=== PATIENT | male | born 1995 | race Caucasian/White ===

== ENCOUNTER 2019-10-20 13:10 | Emergency (ER) | payer OTHER ==
[~2019-10-20] VITALS: Ht 172.7 cm; Wt 72.7 kg
[2019-10-20 14:04] LABS: HEMATOCRIT 49.6 % (42.0-52.0); HEMOGLOBIN 17.8 g/dl (13.5-17.5); MEAN CORPUSCULAR HEMOGLOBIN 31.1 pg (27.0-33.0); MEAN CORPUSCULAR HGB CONC 35.9 g/dl (32.0-36.5); MEAN CORPUSCULAR VOLUME 86.6 fl (80.0-96.0); PLATELET COUNT, AUTOMATED 229 10^3/uL (150-450); RED BLOOD COUNT 5.73 10^6/uL (4.30-6.10); WHITE BLOOD COUNT 7.8 10^3/uL (4.0-10.0)
[2019-10-20 14:21] LABS: AMPHETAMINES LEVEL URINE NEGATIVE (NEGATIVE); BARBITURATES URINE NEGATIVE (NEGATIVE); BENZODIAZEPINES URINE NEGATIVE (NEGATIVE); CANNABINOIDS URINE NEGATIVE (NEGATIVE); COCAINE METABOLITE URINE NEGATIVE (NEGATIVE); METHADONE URINE NEGATIVE (NEGATIVE); OPIATES URINE NEGATIVE (NEGATIVE); PHENCYCLIDINE URINE NEGATIVE (NEGATIVE)
[2019-10-20 14:48] LABS: ACETAMINOPHEN LEVEL < 2.0 UG/ML (10.0-30.0); ALBUMIN 4.2 GM/DL (3.2-5.2); ALT/SGPT 25 U/L (12-78); BILIRUBIN,DIRECT 0.3 MG/DL (0.0-0.2); BILIRUBIN,TOTAL 1.3 MG/DL (0.2-1.0); BLOOD UREA NITROGEN 11 MG/DL (7-18); CARBON DIOXIDE LEVEL 27 MEQ/L (21-32); CHLORIDE LEVEL 106 MEQ/L (98-107); CREATININE FOR GFR 0.85 MG/DL (0.70-1.30); ETHYL ALCOHOL (ETHANOL) < 0.003 % (0.000-0.010); GLOMERULAR FILTRATION RATE > 60.0 (>60); GLUCOSE, FASTING 85 MG/DL (70-100); POTASSIUM SERUM 4.3 MEQ/L (3.5-5.1); SALICYLATE LEVEL < 1.7 MG/DL (5.0-30.0); SODIUM LEVEL 139 MEQ/L (136-145); THYROID STIMULATING HORMONE 0.589 uIU/ML (0.358-3.740); TOTAL PROTEIN 7.6 GM/DL (6.4-8.2)
--- NOTE | 2019-10-20 21:06 | ECGEPIP ---
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
[2019-10-21 06:36] VITALS: BP 122/73
== END 2019-10-21 06:39 ==
LOC: M ED 13:10
DX: R45.851 Suicidal ideations (principal); F32.9 Major depressive disorder, single episode, unspecified; F41.9 Anxiety disorder, unspecified
CPT/HCPCS: 36415; 80048; 80076; 80307; 84443; 85027; 87486; 87581; 87633; 87798; 93005; 99284; G0480

== ENCOUNTER 2020-01-28 11:02 | Inpatient (IN) | payer OTHER ==
[~2020-01-28] VITALS: Ht 172.7 cm; Wt 78.5 kg
[2020-01-28] MEDS ORDERED: RISP0.5T21 PO (11:34)
[2020-01-28] MEDS ORDERED: RISP2TAB32 PO (11:34)
[2020-01-28] MEDS ORDERED: ZOLO100T PO (11:34)
[2020-01-28] MEDS ORDERED: LITH300C PO (11:34)
[2020-01-28 12:22] LABS: HEMATOCRIT 47.3 % (42.0-52.0); HEMOGLOBIN 16.3 g/dl (13.5-17.5); MEAN CORPUSCULAR HEMOGLOBIN 29.6 pg (27.0-33.0); MEAN CORPUSCULAR HGB CONC 34.5 g/dl (32.0-36.5); MEAN CORPUSCULAR VOLUME 85.8 fl (80.0-96.0); PLATELET COUNT, AUTOMATED 203 10^3/uL (150-450); RED BLOOD COUNT 5.51 10^6/uL (4.30-6.10); WHITE BLOOD COUNT 5.3 10^3/uL (4.0-10.0)
[2020-01-28 12:35] LABS: AMPHETAMINES LEVEL URINE NEGATIVE (NEGATIVE); BARBITURATES URINE NEGATIVE (NEGATIVE); BENZODIAZEPINES URINE NEGATIVE (NEGATIVE); CANNABINOIDS URINE NEGATIVE (NEGATIVE); COCAINE METABOLITE URINE NEGATIVE (NEGATIVE); METHADONE URINE NEGATIVE (NEGATIVE); OPIATES URINE NEGATIVE (NEGATIVE); PHENCYCLIDINE URINE NEGATIVE (NEGATIVE)
[2020-01-28 12:51] LABS: ALBUMIN 4.4 GM/DL (3.2-5.2); ALT/SGPT 26 U/L (12-78); BILIRUBIN,DIRECT 0.2 MG/DL (0.0-0.2); BLOOD UREA NITROGEN 16 MG/DL (7-18); CALCIUM LEVEL 9.1 MG/DL (8.5-10.1); CARBON DIOXIDE LEVEL 28 MEQ/L (21-32); CHLORIDE LEVEL 106 MEQ/L (98-107); CREATININE FOR GFR 1.01 MG/DL (0.70-1.30); ETHYL ALCOHOL (ETHANOL) < 0.003 % (0.000-0.010); GLOMERULAR FILTRATION RATE > 60.0 (>60); GLUCOSE, FASTING 87 MG/DL (70-100); SALICYLATE LEVEL < 1.7 MG/DL (5.0-30.0); SODIUM LEVEL 138 MEQ/L (136-145); TOTAL PROTEIN 7.6 GM/DL (6.4-8.2)
[2020-01-28 12:52] LABS: ACETAMINOPHEN LEVEL < 2.0 UG/ML (10.0-30.0)
[2020-01-28 14:09] LABS: LITHIUM LEVEL 0.28 MEQ/L (0.60-1.20)
[2020-01-28] MEDS ORDERED: LITH1TAB PO (14:45)
[2020-01-28] MEDS ORDERED: ACETAMINOPHEN TAB 650MG DOSE (2X325MG) PO PRN (15:00)
[2020-01-28] MEDS ORDERED: MOM 30ML SUSPENSION UDC PO PRN (15:00)
[2020-01-28] MEDS ORDERED: MAALOX 30 ML SUSP *UDC PO PRN (15:00)
[2020-01-28 16:27] VITALS: BP 141/78
[2020-01-28] MEDS: risperiDONE 2 MG TAB PO SCH (20:19)
[2020-01-29 06:22] VITALS: BP 125/66
[2020-01-29] MEDS: SERTRALINE HCL 50 MG TAB PO SCH (08:20)
[2020-01-29] MEDS: risperiDONE 0.5 MG TAB PO SCH (08:20)
[2020-01-29] MEDS ORDERED: LITHIUM CARBONATE 300 MG **CR** TAB PO SCH (09:00)
--- NOTE | 2020-01-29 10:43 | MHHPEPDOC ---
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 His family was born and raised in [place], intact household, went to school, and describes himself as Congregation, but not practicing. He completed high school and stable financially. He has a girlfriend, but she lives far away and visits her on the weekends. MEDICATIONS: Hes on a combination of Zoloft, Risperidone, and [place] at this time. In the past, he notes that this has been helpful and no legal problems at this time. MEDICAL HISTORY: He has a history of suicide thinking and depression, treated at [facility]. He reports an increasing difficulty with depression, low mood, fatigue, and loss of interest. He previously been admitted several months ago, where he was at [facility]. No overt history of suicide attempt, but have reported suicide attempt with alcohol and opioids. He had some history of ADHD as a kid and IEP in high school, which is did well on. FAMILY HISTORY: He denies any family history of psychiatric problems other than reported brother on Zoloft and some depression, but no known suicides. 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 SOCIAL HISTORY - SUBSTANCE USE: He declines any excessive alcohol, tobacco, caffeine, or illicit drugs used. Objective Appearance: Fair hygiene. Affect: Dysthymic and Constricted. Speech: He denies any auditory and visual hallucinations. Spontaneous and Fluid. Cognition: Grossly intact. Thought Form: Linear and goal directed. Thought Content: No evidence of aggressive or homicidal ideation. No thoughts of self harm. Intermittend suicidal ideation. No evidence of delusions. Perception: No perceptual abnormalities noted. Judgement: Fair to poor. Insight: Fair to poor. Assessment F60.3 Borderline personality disorder F43.20 Adjustment disorder, unspecified F33.8 Other recurrent depressive disorders Plan Continue taking 150 mg Zoloft daily, Risperidone 0.5 mg QAM and 2 mg QHS, and [place] extended release 300 mg. Observe him as there have been concerns about adjustment disorders with vic fowler. Further observation will likely indicate the underlying cause as the adjustment would be expected to improve. Theres also been concerns raised in the treatment team as this could be potentially an attempt to gain a higher service rating once he leaves. In 2-3 days, we will confer with outpatient Behavior Health to determine if they wish to have him go to long-term treatment or whether theyre referring to return to [facility] as now patient is in their records as they mentioned. Robert otherwise has no concerning behavior and will be converted to voluntary today as he is amenable. Its not clear whatever he would be involuntary, however it appears that the treatment would be best served by a voluntary conversion. Vital Signs Vital Signs Date Time Temp Pulse Resp B/P (MAP) Pulse Ox O2 Delivery O2 Flow Rate FiO2 01/29/20 07:43 Room Air 01/29/20 06:22 96.9 66 18 125/66 (85) 01/28/20 16:07 97 Laboratory Data 24H Labs Laboratory Tests 2 01/28/20 11:46: Nucleated Red Blood Cells % (auto) 0.0, Anion Gap 4L, Glomerular Filtration Rate > 60.0, Calcium Level 9.1, Total Bilirubin 1.0, Direct Bilirubin 0.2, Aspartate Amino Transf (AST/SGOT) 19, Alanine Aminotransferase (ALT/SGPT) 26, Alkaline Phosphatase 60, Total Protein 7.6, Albumin 4.4, Albumin/Globulin Ratio 1.4, Thyroid Stimulating Hormone (TSH) 1.780, Salicylates Level < 1.7L, Urine Opiates Screen NEGATIVE, Urine Methadone Screen NEGATIVE, Acetaminophen Level < 2.0L, Urine Barbiturates Screen NEGATIVE, Urine Phencyclidine Screen NEGATIVE, Urine Amphetamines Screen NEGATIVE, Urine Benzodiazepines Screen NEGATIVE, [place] Level 0.28L, Urine Cocaine Metabolite Screen NEGATIVE, Urine Cannabinoids Screen NEGATIVE, Ethyl Alcohol Level < 0.003 CBC/BMP Laboratory Tests 01/28/20 11:46 Medications Scheduled [place] Carbonate ([place] Carbonate ER) 300 Mg Tablet.er, 300 MG PO DAILY, (Reported) Risperidone (Risperdal) 0.5 Mg Tablet, 0.5 MG PO DAILY, (Reported) Risperidone (Risperdal) 2 Mg Tablet, 2 MG PO QHS, (Reported) Sertraline Hcl (Zoloft) 100 Mg Tablet, 150 MG PO DAILY, (Reported) Allergies Coded Allergies: No Known Allergies (Unverified , 10/20/19) ALAN SHER DO Jan 29, 2020 10:43
--- NOTE | 2020-01-29 14:00 | HPEPDOC ---
[facility] Medical History & Physical Date of Admission Jan 28, 2020 Date of Service: Jan 29, 2020 Attending Physician: ALAN SHER DO History and Physical Hospitalist Consultation: CHIEF COMPLAINT: suicidal ideations HISTORY OF PRESENT ILLNESS: 24 y/o M with PMHx depression/suicidal ideations presents with recurrence of symptoms. Denies CP/SOB/palpitations. No N/V/ABd pain. PAST MEDICAL HISTORY: None PAST SURGICAL HISTORY: None SOCIAL HISTORY: Denies tobacco, alcohol use. FAMILY HISTORY: Non contributory ALLERGIES: Please see below. REVIEW OF SYSTEMS: HEENT: Denies sore throat/headache CARDIOVASCULAR: Denies chest pain/palpitations RESPIRATORY: Denies shortness of breath/cough GASTROINTESTINAL: denies nausea/vomiting GENITOURINARY: Denies dysuria/urinary urgency. MUSCULOSKELETAL: Denies myalgias/arthralgias NEUROLOGICAL: Denies any focal weakness HOME MEDICATIONS: Please see below. PHYSICAL EXAMINATION: Vitals: (see below) General: No acute distress, laying comfortably in bed. HEENT: Moist mucous membranes. Neck: No JVD or lymphadenopathy Cardiac: RRR, No murmurs Pulm: Clear to auscultation b/l. No wheezing, rhonchi Abd: NT/ND + BS Ext: No edema or cyanosis LABORATORY DATA: See below. ASSESSMENT/PLAN: 1. Depression/Suicidal Ideations: Management per psychiatry. DVT Prophy: OOB/Ambulate Thank you for the consultation. Please call with questions. Vital Signs Vital Signs Date Time Temp Pulse Resp B/P (MAP) Pulse Ox O2 Delivery O2 Flow Rate FiO2 01/29/20 07:43 Room Air 01/29/20 06:22 96.9 66 18 125/66 (85) 01/28/20 16:07 97 Home Medications Scheduled [place] Carbonate ([place] Carbonate ER) 300 Mg Tablet.er, 300 MG PO DAILY Risperidone (Risperdal) 0.5 Mg Tablet, 0.5 MG PO DAILY Risperidone (Risperdal) 2 Mg Tablet, 2 MG PO QHS Sertraline Hcl (Zoloft) 100 Mg Tablet, 150 MG PO DAILY Allergies Coded Allergies: No Known Allergies (Unverified , 10/20/19) A-FIB/CHADSVASC A-FIB History Current/History of A-Fib/PAF?: No OMAR NEWBERRY MD Jan 29, 2020 14:00
[2020-01-29 18:46] VITALS: BP 139/76
[2020-01-29] MEDS: risperiDONE 2 MG TAB PO SCH (20:31)
[2020-01-29] MEDS: LITHIUM CARBONATE 300 MG **CR** TAB PO SCH (20:32)
[2020-01-29] MEDS: traZODone 50 MG TAB PO PRN (20:32)
[2020-01-29] MEDS ORDERED: diphenhydrAMINE 25MG CAP PO ONE (21:45)
[2020-01-29] MEDS ORDERED: OLANZapine ORAL DISINTEGRATING TAB 5MG PO ONE (21:45)
[2020-01-30 06:54] VITALS: BP 106/53
[2020-01-30] MEDS ORDERED: PREVNAR 13 VACCINE SYRINGE IM ONE (09:00)
[2020-01-30] MEDS: LITHIUM CARBONATE 300 MG **CR** TAB PO SCH ×2 (09:17→20:23)
[2020-01-30] MEDS: SERTRALINE HCL 50 MG TAB PO SCH (09:17)
[2020-01-30] MEDS: risperiDONE 0.5 MG TAB PO SCH (09:17)
--- NOTE | 2020-01-30 10:54 | MHIPNPDOC ---
[facility] Progress Note Progress Note DATE OF SERVICE: 01/30/20 Subjective HPI: Robert presents today for concerns regarding his depression. He states that he has been feeling anxious due to his relationship with his girlfriend. He recently increased his dosage of lithium. He notes he has experienced dry mouth and grogginess after sleeping. He denies headaches or difficulty sleeping. He states that after speaking with his girlfriend he has been having suicidal thoughts. He states he does not have any plans to act. Objective Appearance: Appears to be stated age. Well groomed. Well nourished. Behavior: Poor eye contact. Mood: Dysphoric. Passive SI. Cognition: Mildy impaired, groggy and sedated. Thought Content: No homicidal or suicidal ideation. Assessment F33.9 Major depressive disorder, recurrent, unspecified F60.3 Borderline personality disorder Plan Continue lithium and Risperidone at this time. Patients current treatment team is advocating for IOP first. We will see about shelter as patient would likely have more difficulty tolerating this. Vital Signs Vital Signs Date Time Temp Pulse Resp B/P (MAP) Pulse Ox O2 Delivery O2 Flow Rate FiO2 01/30/20 06:54 97.8 60 15 106/53 (70) 97 Room Air Current Medications Current Medications Medications (Trade) Dose Ordered Sig/Kane Route PRN Reason Start Time Stop Time Status Last Admin Dose Admin Acetaminophen (Tylenol Tab) 650 mg Q6HP PRN PO HEADACHE or DISCOMFORT 01/28/20 15:00 Al Hydrox/Mg Hydrox/Simethicone (Mylanta) 30 ml Q4HP PRN PO HEARTBURN/INDIGESTION 01/28/20 15:00 Home Med (Med Rec Complete!) ASDIRECTED XX 01/28/20 15:00 01/28/20 14:49 DC [place] Carbonate (Lithobid Cr) 300 mg BID PO 01/29/20 21:00 01/30/20 09:17 [place] Carbonate (Lithobid Cr) 300 mg DAILY PO 01/29/20 09:00 01/29/20 13:17 DC 01/29/20 08:20 Magnesium Hydroxide (Milk Of Magnesia) 30 ml DAILYPRN PRN PO CONSTIPATION 01/28/20 15:00 Risperidone (RisperDAL) 0.5 mg DAILY PO 01/29/20 09:00 01/30/20 09:17 Risperidone (RisperDAL) 2 mg QHS PO 01/28/20 21:00 01/29/20 20:31 Sertraline HCl (Zoloft) 150 mg DAILY PO 01/29/20 09:00 01/30/20 09:17 Trazodone HCl (Desyrel) 50 mg QHSP PRN PO INSOMNIA 01/28/20 15:00 01/29/20 20:32 Allergies Coded Allergies: No Known Allergies (Unverified , 10/20/19) ALAN SHER DO Jan 30, 2020 10:54
[2020-01-30 16:08] VITALS: BP 115/60
[2020-01-30] MEDS: risperiDONE 2 MG TAB PO SCH (20:23)
[2020-01-30] MEDS: traZODone 50 MG TAB PO PRN (20:23)
[2020-01-30] MEDS: diphenhydrAMINE 25MG CAP PO PRN (20:59)
[2020-01-30] MEDS ORDERED: OLANZapine ORAL DISINTEGRATING TAB 5MG PO ONE (21:15)
[2020-01-31 06:16] VITALS: BP 109/71
[2020-01-31] MEDS: LITHIUM CARBONATE 300 MG **CR** TAB PO SCH ×2 (09:25→21:14)
[2020-01-31] MEDS: risperiDONE 0.5 MG TAB PO SCH (09:25)
[2020-01-31] MEDS: SERTRALINE HCL 50 MG TAB PO SCH (09:26)
[2020-01-31] MEDS: diphenhydrAMINE 25MG CAP PO PRN (12:07)
[2020-01-31 16:12] VITALS: BP 120/68
[2020-01-31] MEDS: traZODone 50 MG TAB PO PRN (21:14)
[2020-01-31] MEDS: risperiDONE 2 MG TAB PO SCH (21:14)
[2020-02-01 06:21] VITALS: BP 109/60
[2020-02-01] MEDS: risperiDONE 0.5 MG TAB PO SCH (09:07)
[2020-02-01] MEDS: LITHIUM CARBONATE 300 MG **CR** TAB PO SCH ×2 (09:07→20:21)
[2020-02-01] MEDS: SERTRALINE 100 MG TAB PO SCH (09:07)
--- NOTE | 2020-02-01 10:24 | MHIPNPDOC ---
[facility] Progress Note Progress Note DATE OF SERVICE: 02/01/20 Subjective HPI: Robert presents today reporting that he's feeling better sometimes and is more interactive and seeking out interactions, otherwise he feels fairly bad. MEDICATIONS: Patient has been tolerating the medication with only a headache and a mild stomachache. Objective Appearance: Hygiene - Fair. Thought Form: Linear and goal directed. Thought Content: Intermittent evidence of suicidal ideation. Perception: No auditory and visual hallucinations. Judgement: Poor. Insight: Fair. Assessment F33.8 Other recurrent depressive disorders F60.3 Borderline personality disorder Plan Continue [place] Risperidone Vital Signs Vital Signs Date Time Temp Pulse Resp B/P (MAP) Pulse Ox O2 Delivery O2 Flow Rate FiO2 02/01/20 06:21 97.0 65 12 109/60 (76) Room Air 01/30/20 06:54 97 Current Medications Current Medications Medications (Trade) Dose Ordered Sig/Kane Route PRN Reason Start Time Stop Time Status Last Admin Dose Admin Acetaminophen (Tylenol Tab) 650 mg Q6HP PRN PO HEADACHE or DISCOMFORT 01/28/20 15:00 Al Hydrox/Mg Hydrox/Simethicone (Mylanta) 30 ml Q4HP PRN PO HEARTBURN/INDIGESTION 01/28/20 15:00 Diphenhydramine HCl (Benadryl) 25 mg Q4HP PRN PO Anxiety 01/30/20 20:30 01/31/20 12:07 Home Med (Med Rec Complete!) ASDIRECTED XX 01/28/20 15:00 01/28/20 14:49 DC [place] Carbonate (Lithobid Cr) 300 mg BID PO 01/29/20 21:00 02/01/20 09:07 [place] Carbonate (Lithobid Cr) 300 mg DAILY PO 01/29/20 09:00 01/29/20 13:17 DC 01/29/20 08:20 Magnesium Hydroxide (Milk Of Magnesia) 30 ml DAILYPRN PRN PO CONSTIPATION 01/28/20 15:00 Risperidone (RisperDAL) 0.5 mg DAILY PO 01/29/20 09:00 02/01/20 09:07 Risperidone (RisperDAL) 2 mg QHS PO 01/28/20 21:00 01/31/20 21:14 Sertraline HCl (Zoloft) 150 mg DAILY PO 01/29/20 09:00 01/31/20 14:50 DC 01/31/20 09:26 Sertraline HCl (Zoloft) 200 mg DAILY PO 02/01/20 09:00 02/01/20 09:07 Trazodone HCl (Desyrel) 50 mg QHSP PRN PO INSOMNIA 01/28/20 15:00 01/31/20 21:14 Allergies Coded Allergies: No Known Allergies (Unverified , 10/20/19) ALAN SHER DO Feb 01, 2020 10:24
--- NOTE | 2020-02-01 10:24 | MHIPNPDOC ---
[facility] Progress Note Progress Note DATE OF SERVICE: 01/31/20 Subjective HPI: Robert presents today for concerns regarding his symptoms of depression. Patients symptoms of depression have not improved since last visitation. Patient has suicidal ideations and has feelings of worthlessness and self harm. Patients girlfriend feels that his mental health is an inconvenience to her and does not offer him support. Objective Behavior: Once leaves the office becomes much more engaged and talkative when he is talking to students and does not feel observed. Affect: Poor insight and judgement. Dysthymic. Constricted. Incongruent with stated mood. Speech: Linear fluid speech. Assessment F33.9 Major depressive disorder, recurrent, unspecified F60.3 Borderline personality disorder Plan Continue to follow involuntary. Will see about representing to [facility]. Increase Zoloft to 200 mg daily. Continue lithium medication. Continue Risperidone medication. Vital Signs Vital Signs Date Time Temp Pulse Resp B/P (MAP) Pulse Ox O2 Delivery O2 Flow Rate FiO2 02/01/20 06:21 97.0 65 12 109/60 (76) Room Air 01/30/20 06:54 97 Current Medications Current Medications Medications (Trade) Dose Ordered Sig/Kane Route PRN Reason Start Time Stop Time Status Last Admin Dose Admin Acetaminophen (Tylenol Tab) 650 mg Q6HP PRN PO HEADACHE or DISCOMFORT 01/28/20 15:00 Al Hydrox/Mg Hydrox/Simethicone (Mylanta) 30 ml Q4HP PRN PO HEARTBURN/INDIGESTION 01/28/20 15:00 Diphenhydramine HCl (Benadryl) 25 mg Q4HP PRN PO Anxiety 01/30/20 20:30 01/31/20 12:07 Home Med (Med Rec Complete!) ASDIRECTED XX 01/28/20 15:00 01/28/20 14:49 DC [place] Carbonate (Lithobid Cr) 300 mg BID PO 01/29/20 21:00 02/01/20 09:07 [place] Carbonate (Lithobid Cr) 300 mg DAILY PO 01/29/20 09:00 01/29/20 13:17 DC 01/29/20 08:20 Magnesium Hydroxide (Milk Of Magnesia) 30 ml DAILYPRN PRN PO CONSTIPATION 01/28/20 15:00 Risperidone (RisperDAL) 0.5 mg DAILY PO 01/29/20 09:00 02/01/20 09:07 Risperidone (RisperDAL) 2 mg QHS PO 01/28/20 21:00 01/31/20 21:14 Sertraline HCl (Zoloft) 150 mg DAILY PO 01/29/20 09:00 01/31/20 14:50 DC 01/31/20 09:26 Sertraline HCl (Zoloft) 200 mg DAILY PO 02/01/20 09:00 02/01/20 09:07 Trazodone HCl (Desyrel) 50 mg QHSP PRN PO INSOMNIA 01/28/20 15:00 01/31/20 21:14 Allergies Coded Allergies: No Known Allergies (Unverified , 10/20/19) ALAN SHER DO Feb 01, 2020 10:24
[2020-02-01 16:12] VITALS: BP 136/82
[2020-02-01] MEDS: risperiDONE 2 MG TAB PO SCH (20:21)
[2020-02-01] MEDS: traZODone 50 MG TAB PO PRN (20:21)
[2020-02-02 06:26] VITALS: BP 112/70
[2020-02-02] MEDS: LITHIUM CARBONATE 300 MG **CR** TAB PO SCH ×2 (08:51→21:14)
[2020-02-02] MEDS: diphenhydrAMINE 25MG CAP PO PRN (08:51)
[2020-02-02] MEDS: SERTRALINE 100 MG TAB PO SCH (08:53)
[2020-02-02] MEDS: risperiDONE 0.5 MG TAB PO SCH (08:53)
[2020-02-02] MEDS ORDERED: BACITRACIN OINTMENT 30GM TUBE TOP PRN (09:45)
--- NOTE | 2020-02-02 11:18 | MHIPNPDOC ---
[facility] Progress Note Progress Note DATE OF SERVICE: 02/02/20 Subjective HPI: Robert presents today for a follow up. He claims to be feeling better with his depression, but still feels mildly uneasy. He denies faking his emotions or putting on a mask to hide it. He does report feeling a little anxious, but overall states to be doing well. He tried outpatient care, but notes that it makes him feel more depressed. Objective Appearance: Well groomed. Well nourished. Appears to be stated age. Behavior: Engaged. Pleasant. Cooperative with good eye contact. Affect: Full range. Appropriate to context. Mood: Generally good. Appropriately reactive. Euthymic. Speech: Normal volume. Spontaneous and Fluid. Normal rate. Motor: No gross motor abnormalities. Cognition: Alert, Attentive, and Oriented to person, place, time. Memory: No formal testing. No gross abnormalities of short or half-way memory noted during interview. Thought Form: Linear and goal directed. Thought Content: No evidence of delusions. No thoughts of self harm. No evidence of aggressive or homicidal ideation. No evidence of suicidal ideation. Perception: No perceptual abnormalities noted. Judgement: Intact as evidenced by decision making in the recent past. Insight: Good insight into symptoms and treatment options. Assessment F33.8 Other recurrent depressive disorders F60.3 Borderline personality disorder Plan Continue [place], Risperidone, and Sertraline at current dose, which is making good progress. Patient will see if open to long-term. If not, well most likely discharge him by mid-week. Vital Signs Vital Signs Date Time Temp Pulse Resp B/P (MAP) Pulse Ox O2 Delivery O2 Flow Rate FiO2 02/02/20 06:26 99.1 71 15 112/70 (84) 98 Room Air Current Medications Current Medications Medications (Trade) Dose Ordered Sig/Kane Route PRN Reason Start Time Stop Time Status Last Admin Dose Admin Acetaminophen (Tylenol Tab) 650 mg Q6HP PRN PO HEADACHE or DISCOMFORT 01/28/20 15:00 Al Hydrox/Mg Hydrox/Simethicone (Mylanta) 30 ml Q4HP PRN PO HEARTBURN/INDIGESTION 01/28/20 15:00 02/02/20 10:53 Bacitracin (Bacitracin Oint) APPLY TOPICALLY DAILY... DAILYPRN PRN TOP SEE DOSE INSTRUCTIONS 02/02/20 09:45 Diphenhydramine HCl (Benadryl) 25 mg Q4HP PRN PO Anxiety 01/30/20 20:30 02/02/20 08:51 Home Med (Med Rec Complete!) ASDIRECTED XX 01/28/20 15:00 01/28/20 14:49 DC [place] Carbonate (Lithobid Cr) 300 mg BID PO 01/29/20 21:00 02/02/20 08:51 [place] Carbonate (Lithobid Cr) 300 mg DAILY PO 01/29/20 09:00 01/29/20 13:17 DC 01/29/20 08:20 Magnesium Hydroxide (Milk Of Magnesia) 30 ml DAILYPRN PRN PO CONSTIPATION 01/28/20 15:00 Risperidone (RisperDAL) 0.5 mg DAILY PO 01/29/20 09:00 02/02/20 08:53 Risperidone (RisperDAL) 2 mg QHS PO 01/28/20 21:00 02/01/20 20:21 Sertraline HCl (Zoloft) 150 mg DAILY PO 01/29/20 09:00 01/31/20 14:50 DC 01/31/20 09:26 Sertraline HCl (Zoloft) 200 mg DAILY PO 02/01/20 09:00 02/02/20 08:53 Trazodone HCl (Desyrel) 50 mg QHSP PRN PO INSOMNIA 01/28/20 15:00 02/01/20 20:21 Allergies Coded Allergies: No Known Allergies (Unverified , 10/20/19) ALAN SHER DO Feb 02, 2020 11:18
[2020-02-02 18:10] VITALS: BP 144/81
[2020-02-02] MEDS: risperiDONE 2 MG TAB PO SCH (21:14)
[2020-02-03 06:09] VITALS: BP 128/78
[2020-02-03] MEDS: risperiDONE 0.5 MG TAB PO SCH (08:33)
[2020-02-03] MEDS: SERTRALINE 100 MG TAB PO SCH (08:33)
[2020-02-03] MEDS: LITHIUM CARBONATE 300 MG **CR** TAB PO SCH ×2 (08:33→20:47)
--- NOTE | 2020-02-03 10:42 | MHIPNPDOC ---
[facility] Progress Note Progress Note DATE OF SERVICE: 02/03/20 Subjective HPI: Robert presents today for concerns regarding his evaluation and discharge. Patient affirms that suicidal thoughts are getting better, stomach problems, headaches. He denies self harm. Objective Appearance: Well groomed. Well nourished. Appears to be stated age. Behavior: Engaged. Pleasant. Cooperative with good eye contact. Affect: Appropriate to context. Full range. Mood: Euthymic. Generally good. Appropriately reactive. Speech: Normal rate. Normal volume. Spontaneous and Fluid. Motor: No gross motor abnormalities. Cognition: Alert, Attentive, and Oriented to person, place, time. Memory: No formal testing. No gross abnormalities of short or longterm memory noted during interview. Thought Form: Linear and goal directed. Thought Content: No evidence of suicidal ideation. No evidence of aggressive or homicidal ideation. No evidence of delusions. No thoughts of self harm. Perception: No perceptual abnormalities noted. Judgement: Intact as evidenced by decision making in the recent past. Insight: Good insight into symptoms and treatment options. Assessment F33.8 Other recurrent depressive disorders F60.3 Borderline personality disorder Plan Continue current medications. Discharge tomorrow at 11:00 AM. Patient has made progress regarding his depressive symptoms. Vital Signs Vital Signs Date Time Temp Pulse Resp B/P (MAP) Pulse Ox O2 Delivery O2 Flow Rate FiO2 02/03/20 08:59 Room Air 02/03/20 06:09 98.3 74 15 128/78 (95) 98 Current Medications Current Medications Medications (Trade) Dose Ordered Sig/Kane Route PRN Reason Start Time Stop Time Status Last Admin Dose Admin Acetaminophen (Tylenol Tab) 650 mg Q6HP PRN PO HEADACHE or DISCOMFORT 01/28/20 15:00 Al Hydrox/Mg Hydrox/Simethicone (Mylanta) 30 ml Q4HP PRN PO HEARTBURN/INDIGESTION 01/28/20 15:00 02/02/20 10:53 Bacitracin (Bacitracin Oint) APPLY TOPICALLY DAILY... DAILYPRN PRN TOP SEE DOSE INSTRUCTIONS 02/02/20 09:45 02/03/20 08:35 Diphenhydramine HCl (Benadryl) 25 mg Q4HP PRN PO Anxiety 01/30/20 20:30 02/02/20 08:51 Home Med (Med Rec Complete!) ASDIRECTED XX 01/28/20 15:00 01/28/20 14:49 DC [place] Carbonate (Lithobid Cr) 300 mg BID PO 01/29/20 21:00 02/03/20 08:33 [place] Carbonate (Lithobid Cr) 300 mg DAILY PO 01/29/20 09:00 01/29/20 13:17 DC 01/29/20 08:20 Magnesium Hydroxide (Milk Of Magnesia) 30 ml DAILYPRN PRN PO CONSTIPATION 01/28/20 15:00 Risperidone (RisperDAL) 0.5 mg DAILY PO 01/29/20 09:00 02/03/20 08:33 Risperidone (RisperDAL) 2 mg QHS PO 01/28/20 21:00 02/02/20 21:14 Sertraline HCl (Zoloft) 150 mg DAILY PO 01/29/20 09:00 01/31/20 14:50 DC 01/31/20 09:26 Sertraline HCl (Zoloft) 200 mg DAILY PO 02/01/20 09:00 02/03/20 08:33 Trazodone HCl (Desyrel) 50 mg QHSP PRN PO INSOMNIA 01/28/20 15:00 02/01/20 20:21 Allergies Coded Allergies: No Known Allergies (Unverified , 10/20/19) ALAN SHER DO Feb 03, 2020 10:42
[2020-02-03 18:03] VITALS: BP 132/85
[2020-02-03] MEDS: risperiDONE 2 MG TAB PO SCH (20:47)
[2020-02-04 06:52] VITALS: BP 138/89
[2020-02-04] MEDS: LITHIUM CARBONATE 300 MG **CR** TAB PO SCH (08:35)
[2020-02-04] MEDS: risperiDONE 0.5 MG TAB PO SCH (08:35)
[2020-02-04] MEDS: SERTRALINE 100 MG TAB PO SCH (08:35)
[2020-02-04] MEDS ORDERED: RISP2TAB32 PO (08:53)
[2020-02-04] MEDS ORDERED: SERT-138 PO (08:53)
[2020-02-04] MEDS ORDERED: RISP0.5T21 PO (08:53)
[2020-02-04] MEDS ORDERED: LITH1TAB PO (08:53)
--- NOTE | 2020-02-04 09:06 | MHDSPDOC ---
[facility] Discharge Summary Discharge Summary DATE OF ADMISSION: Jan 28, 2020 at 14:53 DATE OF DISCHARGE:Feb 04, 2020 at 11:10 DISCHARGE DIAGNOSES: F33.9 Major depressive disorder, recurrent, unspecified CONSULTANTS INVOLVED:[ None (basic hospitalist screening)] REASON FOR ADMISSION & TREATMENT AND PROGRESS ON THE UNIT : Robert presented to the inpatient mental health unit after reportedly making suicidal statements. He was admitted on a voluntary status and subsequently resumed on his home Risperidone and Glen as well as Sertraline. He initially had difficulty with self-harm in the form of scratching. However, after an increase in resolve to 200 mg daily and Glen to 300 mg 2x daily, he did quite well and became more social. I advocated for him to engage in more groups, from which he became more social as he found closer friends and peers on the unit. He became more amenable on the unit with no self-harm behavior for several days. As he had requested discharged as long-term had not been recommended by the Behavioral Health, but they wish for him to engage more in the IOP program before they consider long-term. DISCHARGE ASSESSMENT[improved] Legal status considerations: The patient at the time of discharge did not meet criteria for involuntary admission/extension due to having a [normal] mental status exam, [fair] insight into the situation, They are engaged in the discharge process, as well as being friendly and amenable in behavioral control and havent been engaging in any observed concerning behavior or ideation recently. They decline voluntary extension/admission at this time and must be discharged in good price, as Im unable to make a case for holding the patient against their will. They may have historical risk factors of admissions and other interactions with psychiatry however, those are not modifiable from a clinical perspective. The patient will need to be discharged in good price. MENTAL STATUS EXAMINATION ON DISCHARGE: [General: Well dressed with good hygiene Speech: Spontaneous and fluid Thought processes: Linear and logical Thought content: Future orientated Abstract reasoning, and computation: Intact Description of associations: Intact Description of abnormal or psychotic thoughts:Denies any suicidal or homicidal ideation. Denies any auditory or visual hallucinations. Does not appear to be responding to internal stimuli. Does not appear to be endorsing any bizarre or paranoid ideation. Judgment: fair Insight: fair Orientation: Alert and orientated 3 Recent and remote memory: Intact Attention span and concentration: Intact Fund of knowledge: Adequate Mood: "okay" Affect: Euthymic with a full range] PLAN/FOLLOWUP ARRANGEMENTS: Follow up appointments made (PCP and MH in 5 days of D/C date) and safety plan completed. Safety Planning aspects completed prior to discharge [DOD: Weapons Profile 30 days] [Medication supplies limited to 7 days with 4 refills to prevent accumulation to OD] [RN reviewed crisis hotline information and other aspects to empower patient to access care in interim before next appointment.] The amount of time spent in the coordination of care for this patient was approximately 30 minutes. Vital Signs/I&Os Vital Signs Date Time Temp Pulse Resp B/P (MAP) Pulse Ox O2 Delivery O2 Flow Rate FiO2 02/04/20 06:52 98.0 78 14 138/89 (105) 96 Room Air Medications Scheduled Glen Carbonate (Glen Carbonate ER) 300 Mg Tablet.er, 300 MG PO BID for mood for 7 Days, #14 Risperidone (Risperdal) 0.5 Mg Tablet, 0.5 MG PO DAILY for mood for 7 Days, #7 Risperidone (Risperdal) 2 Mg Tablet, 2 MG PO QHS for mood for 7 Days, #7 Sertraline HCl (Sertraline HCl) 100 Mg Tablet, 200 MG PO DAILY for mood for 7 Days, #14 Allergies Coded Allergies: No Known Allergies (Unverified , 10/20/19) ALAN SHER DO Feb 04, 2020 09:06
== END 2020-02-04 11:10 | disposition home or self-care (01) | DRG 885 ==
LOC: M ED 11:02 → M ED INP 14:53 → M PSY 16:15
PROVIDERS: ADMIT Psychiatry & Neurology Addiction Medicine; ATTEND Psychiatry & Neurology Addiction Medicine
DX: F33.9 Major depressive disorder, recurrent, unspecified (principal); F60.3 Borderline personality disorder; F43.20 Adjustment disorder, unspecified; Z79.899 Other long term (current) drug therapy

== ENCOUNTER 2020-03-11 03:06 | Inpatient (IN) | payer OTHER ==
[~2020-03-11] VITALS: Ht 170.2 cm; Wt 75.1 kg
[2020-03-11] VITALS (8 sets, daily range): BP systolic 107–145; BP diastolic 62–84
[~2020-03-11 03:06] MED LIST: LITH1TAB PO; LITH300C PO; RISP0.5T21 PO; RISP2TAB32 PO; SERT-138 PO; ZOLO100T PO
[2020-03-11] MEDS ORDERED: NS 1,000 ML IV ONE (03:15)
[2020-03-11 03:29] LABS: BASO % 0.6 % (0.0-1.0); HEMATOCRIT 48.8 % (42.0-52.0); HEMOGLOBIN 17.2 g/dl (13.5-17.5); LYMPH # 2.7 10^3/uL (1.5-5.0); LYMPH % 37.4 % (24.0-44.0); MEAN CORPUSCULAR HEMOGLOBIN 30.2 pg (27.0-33.0); MEAN CORPUSCULAR HGB CONC 35.2 g/dl (32.0-36.5); MEAN CORPUSCULAR VOLUME 85.6 fl (80.0-96.0); MONO # 0.8 10^3/uL (0.0-0.8); MONO % 11.2 % (0.0-5.0); NEUTROPHILS # 3.7 10^3/uL (1.5-8.5); NEUTROPHILS % 50.5 % (36.0-66.0); PLATELET COUNT, AUTOMATED 232 10^3/uL (150-450); WHITE BLOOD COUNT 7.2 10^3/uL (4.0-10.0)
[2020-03-11] MEDS ORDERED: CHARCOAL ACTIVATED LIQUID 25 GM/120 ML BTL PO ONE (03:45)
[2020-03-11] MEDS ORDERED: ONDANSETRON 4MG/2ML VIAL IV ONE (03:45)
[2020-03-11 04:07] LABS: ACETAMINOPHEN LEVEL < 2.0 UG/ML (10.0-30.0); ALBUMIN 4.4 GM/DL (3.2-5.2); ALT/SGPT 19 U/L (12-78); BILIRUBIN,DIRECT 0.1 MG/DL (0.0-0.2); BILIRUBIN,TOTAL 0.9 MG/DL (0.2-1.0); BLOOD UREA NITROGEN 9 MG/DL (7-18); CALCIUM LEVEL 8.7 MG/DL (8.5-10.1); CARBON DIOXIDE LEVEL 28 MEQ/L (21-32); CHLORIDE LEVEL 104 MEQ/L (98-107); CPK CREATINE PHOSPHOKINASE 98 U/L (39-308); CREATININE FOR GFR 0.97 MG/DL (0.70-1.30); ETHYL ALCOHOL (ETHANOL) < 0.003 % (0.000-0.010); GLOMERULAR FILTRATION RATE > 60.0 (>60); GLUCOSE, FASTING 90 MG/DL (70-100); LITHIUM LEVEL 1.61 MEQ/L (0.60-1.20); POTASSIUM SERUM 3.8 MEQ/L (3.5-5.1); SALICYLATE LEVEL < 1.7 MG/DL (5.0-30.0); SODIUM LEVEL 140 MEQ/L (136-145); TOTAL PROTEIN 7.6 GM/DL (6.4-8.2)
[2020-03-11] MEDS: NS 1,000 ML IV SCH ×7 (04:15→19:55)
[2020-03-11 05:33] LABS: AMPHETAMINES LEVEL URINE NEGATIVE (NEGATIVE); BARBITURATES URINE NEGATIVE (NEGATIVE); BENZODIAZEPINES URINE NEGATIVE (NEGATIVE); CANNABINOIDS URINE NEGATIVE (NEGATIVE); COCAINE METABOLITE URINE NEGATIVE (NEGATIVE); METHADONE URINE NEGATIVE (NEGATIVE); OPIATES URINE NEGATIVE (NEGATIVE); PHENCYCLIDINE URINE NEGATIVE (NEGATIVE)
[2020-03-11 05:59] LABS: BLOOD UREA NITROGEN 8 MG/DL (7-18); CALCIUM LEVEL 7.9 MG/DL (8.5-10.1); CARBON DIOXIDE LEVEL 26 MEQ/L (21-32); CHLORIDE LEVEL 110 MEQ/L (98-107); CREATININE FOR GFR 0.88 MG/DL (0.70-1.30); GLOMERULAR FILTRATION RATE > 60.0 (>60); GLUCOSE, FASTING 87 MG/DL (70-100); LITHIUM LEVEL 2.65 MEQ/L (0.60-1.20); POTASSIUM SERUM 4.3 MEQ/L (3.5-5.1); SODIUM LEVEL 143 MEQ/L (136-145)
[2020-03-11] MEDS ORDERED: methylPREDNISolone 125MG 2ML VIAL IV ONE (06:00)
[2020-03-11] MEDS ORDERED: diphenhydrAMINE 50MG/ML VIAL (J1200) IV ONE (06:00)
[2020-03-11] MEDS ORDERED: METOCLOPRAMIDE INJ 10MG/2ML VIAL (J2765 PER 1) IV ONE (07:00)
[2020-03-11] MEDS ORDERED: GOLYTELY SOLN 4000 ML BTL PO ONE (07:00)
[2020-03-11] MEDS ORDERED: RISP0.5T3 PO (07:42)
[2020-03-11] MEDS ORDERED: RISP2TAB3 PO (07:42)
[2020-03-11] MEDS ORDERED: SERT-138 PO (07:42)
[2020-03-11] MEDS ORDERED: LITH1TAB PO (07:42)
[2020-03-11 08:52] LABS: BLOOD UREA NITROGEN 9 MG/DL (7-18); CALCIUM LEVEL 8.6 MG/DL (8.5-10.1); CARBON DIOXIDE LEVEL 26 MEQ/L (21-32); CHLORIDE LEVEL 110 MEQ/L (98-107); CREATININE FOR GFR 1.03 MG/DL (0.70-1.30); GLOMERULAR FILTRATION RATE > 60.0 (>60); GLUCOSE, FASTING 98 MG/DL (70-100); SODIUM LEVEL 141 MEQ/L (136-145)
[2020-03-11 09:45] LABS: LITHIUM LEVEL 3.64 MEQ/L (0.60-1.20)
[2020-03-11] MEDS ORDERED: LIDOCAINE 1% MDV 20ML VIAL SC PRN ×2 (11:00)
[2020-03-11 11:15] LABS: BLOOD UREA NITROGEN 8 MG/DL (7-18); CALCIUM LEVEL 8.6 MG/DL (8.5-10.1); CARBON DIOXIDE LEVEL 26 MEQ/L (21-32); CHLORIDE LEVEL 110 MEQ/L (98-107); CREATININE FOR GFR 0.96 MG/DL (0.70-1.30); GLOMERULAR FILTRATION RATE > 60.0 (>60); GLUCOSE, FASTING 109 MG/DL (70-100); POTASSIUM SERUM 3.7 MEQ/L (3.5-5.1); SODIUM LEVEL 141 MEQ/L (136-145)
[2020-03-11 11:16] LABS: LITHIUM LEVEL 4.48 MEQ/L (0.60-1.20)
[2020-03-11] MEDS ORDERED: LORazepam 2 MG/ML VIAL IV PRN (11:30)
[2020-03-11] MEDS ORDERED: SODIUM CHLORIDE 0.9% 1000ML IV PRN (11:30)
[2020-03-11 11:43] LABS: CHOLESTEROL LEVEL 127 MG/DL (<200); CHOLESTEROL RISK RATIO 3.023 (<5); HDL CHOLESTEROL 42 MG/DL (>40); LDL CHOLESTEROL 78 MG/DL (<100); NON-HDL-C 85 MG/DL; TRIGLYCERIDES LEVEL 36 MG/DL (<150)
[2020-03-11 12:03] LABS: HEPATITIS B SURFACE ANTIBODY POSITIVE (POSITIVE)
[2020-03-11 12:12] LABS: HEPATITIS B SURFACE ANTIGEN NEGATIVE (NEGATIVE)
--- NOTE | 2020-03-11 12:33 | REP ---
INDICATION: POST LINE PLACEMENT. COMPARISON: None. TECHNIQUE: Semi-erect AP radiograph. Portable exam. FINDINGS: An azygos lobe is noted incidentally. Nasogastric tube enters the gastric fundus. Monitoring electrodes are seen. There is a left internal jugular central line terminating just to the right of midline at the expected location of the junction of the SVC and brachiocephalic vein. There is mild platelike atelectasis in the left base. Lungs are otherwise clear and well inflated. Pleural angles are sharp. IMPRESSION: Left central venous catheter terminates just to the right of midline at the expected location of the junction of the SVC and brachiocephalic vein. An azygos vein is noted. There is discoid atelectasis in the left base. There is no evidence of pneumothorax. <Electronically signed by Cayetano Fajardo > 03/11/20 0036
[2020-03-11 12:41] LABS: HEPATITIS B CORE ANTIBODY IGM NEGATIVE (NEGATIVE)
[2020-03-11 13:14] LABS: HEMOGLOBIN A1c 4.8 %
--- NOTE | 2020-03-11 14:16 | HPEPDOC ---
General Date of Admission Mar 11, 2020 at 08:16 Date of Service: Mar 11, 2020 Chief Complaint The patient is a 24-year-old male admitted with a reason for visit of Overdose. 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 Poison control was immediately. His Maxbass level was 1.6, 2 hour repeat was 2.6. Poison control advised total bowel irrigation, IVF 300 cc/ hour and continue lithium level and bmp every 2 hours. If levels go over 4.0 will need HD. On my interview Patient wa somnolent but easily arousable complains that he is not feeling well. Feeling nauseous, having tremors and feeling very sleepy and unable to concentrate on anything. Had 2 bowel movements with total bowel irrigation. Patient was admitted to ICU. Nephrology was consulted and repeat lithium went up to 4.4. Home Medications No Active Prescriptions or Reported Meds Allergies Coded Allergies: No Known Allergies (Unverified , 10/20/19) Past Medical History Medical History Major depression Family History Significant Family History: Hypertension (mother) Social History * Smoker: Denies Alcohol: rarely Drugs: denies A-FIB/CHADSVASC A-FIB History Current/History of A-Fib/PAF?: No Review of Systems Constitutional: Reports: Chills, Lethargy ENT: Denies: Head Aches, Ear Pain, Dysphagia Skin: Denies: Rash, Lesions, Breakdown Pulmonary: Denies: Dyspnea, Cough Cardiovascular: Denies: Chest Pain, Palpitations, Orthopnea, Paroxysmal Noc. Dyspnea, Lt Headedness Gastrointestinal: Reports: Nausea, Vomiting Genitourinary: Denies: Dysuria, Frequency, Incontinence, Retention Hematologic: Denies: Bruising, Bleeding Excessively Neurological: Reports: Other Symptoms (tremors) Physical Examination General Exam: Positive: Cooperative, No Acute Distress, Other (somnolent but easily arousable) Eye Exam: Positive: PERRLA, Conjunctiva & lids normal, EOMI; Negative: Sclera icteric ENT Exam: Positive: Atraumatic, Mucous membr. moist/pink, Pharynx Normal Neck Exam: Positive: Supple; Negative: JVD, thyromegaly Chest Exam: Positive: Clear to auscultation, Normal air movement Heart Exam: Positive: Rate Normal, Regular Rhythm, Normal S1, Normal S2; Negative: Murmurs, Rubs Telemetry: Positive: No significant arrhythmia Abdomen Exam: Positive: Normal bowel sounds, Soft; Negative: Tenderness, Hepatospenomegaly Extremity Exam: Positive: Normal pulses; Negative: Clubbing, Cyanosis, Edema Skin Exam: Positive: Rash Vital Signs Vital Signs Date Time Temp Pulse Resp B/P (MAP) Pulse Ox O2 Delivery O2 Flow Rate FiO2 03/11/20 12:00 98.8 91 20 145/82 (103) 93 Room Air Laboratory Data Labs 24H Laboratory Tests 2 03/11/20 03:20: Immature Granulocyte % (Auto) 0.3, Neutrophils (%) (Auto) 50.5, Lymphocytes (%) (Auto) 37.4, Monocytes (%) (Auto) 11.2H, Eosinophils (%) (Auto) 0.0, Basophils (%) (Auto) 0.6, Neutrophils # (Auto) 3.7, Lymphocytes # (Auto) 2.7, Monocytes # (Auto) 0.8, Eosinophils # (Auto) 0.0, Basophils # (Auto) 0.0, Nucleated Red Blood Cells % (auto) 0.0, Anion Gap 8, Glomerular Filtration Rate > 60.0, Cecy mated Mean Plasma Glucose 91, Hemoglobin A1c 4.8, Calcium Level 8.7, Total Bilirubin 0.9, Direct Bilirubin 0.1, Aspartate Amino Transf (AST/SGOT) 21, Alanine Aminotransferase (ALT/SGPT) 19, Alkaline Phosphatase 64, Total Creatine Kinase 98, Total Protein 7.6, Albumin 4.4, Albumin/Globulin Ratio 1.4, Thyroid Stimulating Hormone (TSH) 4.660H, Salicylates Level < 1.7L, Acetaminophen Level < 2.0L, Maxbass Level 1.61H, Ethyl Alcohol Level < 0.003 03/11/20 03:40: Bedside Glucose (Misc Panel) 82 03/11/20 03:51: POC pH (Misc Panel) 7.427, POC Base Excess (Misc Panel) 0.0, POC Saturated Percent O2 (Misc) 98, POC pO2 (Misc Panel) 99.0, POC pCO2 (Misc Panel) 36.9, POC HCO3 (Misc Panel) 24.3, POC Total CO2 (Misc Panel) 25.0 03/11/20 05:02: Urine Opiates Screen NEGATIVE, Urine Methadone Screen NEGATIVE, Urine Barbiturates Screen NEGATIVE, Urine Phencyclidine Screen NEGATIVE, Urine Amphetamines Screen NEGATIVE, Urine Benzodiazepines Screen NEGATIVE, Urine Cocaine Metabolite Screen NEGATIVE, Urine Cannabinoids Screen NEGATIVE 03/11/20 05:15: Anion Gap 7L, Glomerular Filtration Rate > 60.0, Calcium Level 7.9L, Magnesium Level 2.0, Maxbass Level 2.65*H 03/11/20 06:52: Coronavirus (COVID-19)(PCR) NEGATIVE 03/11/20 07:41: Anion Gap 5L, Glomerular Filtration Rate > 60.0, Calcium Level 8.6, Maxbass Level 3.64*H 03/11/20 10:17: Anion Gap 5L, Glomerular Filtration Rate > 60.0, Calcium Level 8.6, Maxbass Level 4.48*H, Triglycerides Level 36, Total Cholesterol 127, LDL Cholesterol 78, Non-HDL Cholesterol (LDL + VLDL) 85, Total HDL Cholesterol 42, Cholesterol/HDL Ratio 3.023, Hepatitis B Surface Antigen NEGATIVE, Hepatitis B Surface Antibody POSITIVE, Hepatitis B Core IgM Antibody NEGATIVE, Hepatitis C Antibody Index 0.0 03/11/20 12:04: Maxbass Level 2.77*H CBC/BMP Laboratory Tests 03/11/20 03:20 03/11/20 05:15 03/11/20 07:41 03/11/20 10:17 Assessment/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 Patient did vomit almost immediatly after taking the Poison control was contacted immediately. His Maxbass level was 1.6, 2 hour repeat was 2.6. Then repeat was 4.4. Poison control advised total bowel irrigation, IVF 300 cc/ hour and continue lithium level and bmp every 2 hours. Maxbass overdose continue IVF, total bowel irrigation, will be started on HD as lithium level qamar to 4.4. lithium and bmp q4 hours after dialysis Zoloft overdose unknown number poison control advised EKG later in the day. Major depression with suicidal attept with drug overdose psych will be consulted after acute medical issues are treated. Plan / VTE VTE Prophylaxis Ordered?: Yes MARVIN DEAL MD Mar 11, 2020 14:16
--- NOTE | 2020-03-11 14:55 | CR ---
DATE OF CONSULTATION: 03/11/2020 REQUESTING PHYSICIAN: Dr. Janet Rivera CONSULTING PHYSICIAN: Dr. Peter Dey REASON FOR CONSULTATION: Management of lithium overdose. CHIEF COMPLAINT: Patient presented to the hospital after taking an overdose of lithium tablets. 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 He takes lithium, sertraline, and risperidone at home. His home dose of lithium is 300 mg extended release tablet twice a day. He was feeling depressed for the last few days, so he took almost a full bottle of lithium tablets, at least 40-45 pills today morning, and then he presented to the emergency room. He was given intravenous (IV) fluid hydration in the emergency room. He was started on GoLYTELY via the nasogastric (NG) tube for bowel cleansing. His initial lithium level was 1.61; however, the serial repeat lithium levels were going up, and nephrology service was called for further help in the management of this patient. Patient needed my immediate attention. I saw and evaluated the patient in the emergency room today morning. He was awake but gets drowsy in between the conversation. He was able to provide me with a history. There is no reported seizure activity since the time he came to the emergency room. During my evaluation, his third lithium level came higher than before, and it was 3.64. MEDICAL HISTORY: Bipolar disorder. SURGICAL HISTORY: History of wisdom tooth extraction. ALLERGIES: No known drug allergies. FAMILY HISTORY: No significant family history of end-stage renal disease. 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 He denies any illicit drug abuse or alcohol abuse. REVIEW OF SYSTEMS: CONSTITUTIONAL: He denies any fever or chills. EYES: He denies any blurry vision or double vision. ENT: He denies any dysphagia or odynophagia. CARDIOVASCULAR: He denies any chest pain or palpitations. RESPIRATORY: He denies any shortness of breath. GASTROINTESTINAL: He denies any nausea or vomiting. Currently he is getting GoLYTELY via the NG tube, and he reports loose stools. GENITOURINARY: He denies any dysuria or hematuria. MUSCULOSKELETAL: He denies any muscle aches or pains. SKIN: He denies any rashes or ulcers. HEMATOLOGICAL/ONCOLOGICAL: He denies any easy bleeding or bruising PSYCHIATRIC: He does report a depressed mood. CENTRAL NERVOUS SYSTEM: He denies any strokes, seizures, or weakness. All other review of systems is negative. PHYSICAL EXAMINATION: GENERAL: Patient is sitting up in the bed, slightly drowsy but able to provide me with a history. VITAL SIGNS: Temperature is 98.1 degrees Fahrenheit, blood pressure 128/77, pulse is 89, respiratory rate of 14, saturating 96% on room air. HEAD AND NECK: Pupils are equally round and reactive to light. Mucous membranes are slightly dry. Neck is supple. There is no jugular venous distention (JVD). CARDIOVASCULAR: S1, S2, regular rate. No edema of the bilateral lower extremities. RESPIRATORY: Chest is clear to auscultation bilaterally. Bilateral equal air entry. No rales or rhonchi. ABDOMEN: Soft. Positive bowel sounds. Nontender. No organomegaly. He has an NG tube (NGT) at this time and getting GoLYTELY through the NGT. GENITOURINARY: Bladder is nonpalpable. MUSCULOSKELETAL: No clubbing or cyanosis. Pulses are 2+. CENTRAL NERVOUS SYSTEM: No focal deficit at this time. He is able to move extremities, follows commands. Power is 5/5. Slightly drowsy in between the exam and conversation. SKIN: No rashes or ulcers. LYMPH NODE: No significant cervical, axillary, or inguinal lymphadenopathy. LABORATORY REVIEW: CBC showed a WBC of 7.2, hemoglobin 17.2, platelets are 232. BMP showed sodium 141, potassium 3.7, chloride 110, bicarbonate 26, BUN 8, creatinine 0.96, glucose 109, calcium 8.6. Total bilirubin 0.9, AST 21, ALT 19, alkaline phosphatase 64. TSH is 4.6. Serial lithium levels show that it is trending up. Initial presentation lithium level was 1.61. The most latest one is 4.48. IMAGING: A chest x-ray was done, which did not show any acute pathology. HOME MEDICATIONS: - lithium extended release 300 mg by mouth twice a day - risperidone 0.5 mg by mouth in the morning and 2 mg every night - sertraline 200 mg by mouth daily ASSESSMENT: A 24-year-old male with past medical history of bipolar disorder, on sertraline, risperidone, and lithium who came in with lithium overdose. PLAN: 1. Acute lithium overdose and lithium toxicity. Patient's latest lithium level is 4.48, and it is rising with every lab draw. He is show initial signs of toxicity, including somnolence and drowsiness. A decision was made to start extracorporeal removal of lithium with hemodialysis. Patient was transferred to intensive care unit (ICU). Acute non-tunneled hemodialysis catheter was placed. Patient is going to be dialyzed for 4 hours. A lithium level will be drawn after dialysis, 2 hours and 6 hours, and if the lithium levels are still high after hemodialysis, then he will be started on continuous veno-venous hemodiafiltration. Continue monitoring in the ICU. He was already given normal saline bolus. He was getting 300 mL of normal saline (NS) per hour in the ER. In the ICU he will be given normal saline at 200 mL an hour. Continue the gastric lavage and hold bowel cleansing. He is getting GoYTELY via the NG tube. 2. Depression and bipolar disorder. Patient currently on lithium toxicity. Zoloft and sertraline are on hold. Rest of the management is as per medical team. Plan of care was discussed with the nursing staff and with the patient as well, and he agrees for dialysis. Total critical care time spent in the management of this patient today morning in the emergency room and in the ICU, excluding all the procedures, was 1 hour and 30 minutes. Thank you for involving me in the care of this patient. I shall be happy to follow the patient along with you tomorrow morning. AMANDA
[2020-03-11 18:45] LABS: BLOOD UREA NITROGEN 8 MG/DL (7-18); CALCIUM LEVEL 8.3 MG/DL (8.5-10.1); CARBON DIOXIDE LEVEL 27 MEQ/L (21-32); CHLORIDE LEVEL 109 MEQ/L (98-107); CREATININE FOR GFR 0.89 MG/DL (0.70-1.30); GLOMERULAR FILTRATION RATE > 60.0 (>60); GLUCOSE, FASTING 94 MG/DL (70-100); LITHIUM LEVEL 1.64 MEQ/L (0.60-1.20); POTASSIUM SERUM 3.6 MEQ/L (3.5-5.1); SODIUM LEVEL 142 MEQ/L (136-145)
[2020-03-12] VITALS: BP 120/84
[2020-03-12 01:05] LABS: BLOOD UREA NITROGEN 11 MG/DL (7-18); CALCIUM LEVEL 8.9 MG/DL (8.5-10.1); CARBON DIOXIDE LEVEL 28 MEQ/L (21-32); CHLORIDE LEVEL 109 MEQ/L (98-107); CREATININE FOR GFR 1.02 MG/DL (0.70-1.30); GLOMERULAR FILTRATION RATE > 60.0 (>60); GLUCOSE, FASTING 81 MG/DL (70-100); POTASSIUM SERUM 4.5 MEQ/L (3.5-5.1); SODIUM LEVEL 143 MEQ/L (136-145)
[2020-03-12 01:21] LABS: LITHIUM LEVEL 1.27 MEQ/L (0.60-1.20)
[2020-03-12 04:00] VITALS: BP 113/73
[2020-03-12] MEDS: NS 1,000 ML IV SCH (04:01)
[2020-03-12 06:36] LABS: ALBUMIN 3.4 GM/DL (3.2-5.2); BLOOD UREA NITROGEN 10 MG/DL (7-18); CALCIUM LEVEL 7.9 MG/DL (8.5-10.1); CARBON DIOXIDE LEVEL 27 MEQ/L (21-32); CHLORIDE LEVEL 110 MEQ/L (98-107); CREATININE FOR GFR 0.87 MG/DL (0.70-1.30); GLOMERULAR FILTRATION RATE > 60.0 (>60); GLUCOSE, FASTING 84 MG/DL (70-100); LITHIUM LEVEL 1.04 MEQ/L (0.60-1.20); PHOSPHORUS LEVEL 3.5 MG/DL (2.5-4.9); SODIUM LEVEL 142 MEQ/L (136-145)
[2020-03-12 08:00] VITALS: BP 108/69
[2020-03-12] MEDS ORDERED: POTASSIUM CHLORIDE 10 MEQ SR TABLET PO ONE (09:00)
--- NOTE | 2020-03-12 11:06 | RO ---
DATE OF OPERATION: 03/11/2020 PROCEDURE: Left internal jugular (IJ) dialysis catheter placement. DIAGNOSIS: Renal failure. POSTPROCEDURE DIAGNOSIS: Renal failure. SURGEON: Hernan Brooks D.O. ANESTHESIA: 1% Lidocaine a total of 10 mL introduced subcutaneously. CONSENT: Patient gave written consent for a right IJ. DESCRIPTION OF PROCEDURE: After patient was prepped and draped in a sterile manner, chlorhexidine was used over the left IJ with chlorhexidine and full barrier precautions. The left IJ had a very large IJ and felt that this would be the best site. 1% Lidocaine was then introduced subcutaneously. syringe was then introduced into the left IJ on the first pass under direct ultrasound guidance. The wire was fed through the needle and the needle was removed. Dilators were used up until the point of the dialysis catheter. The 15 cm dialysis catheter was then placed. The wire and stylus were then removed. Both ports were flushed with saline and then followed by the appropriate doses of heparin at 1.0 and 1.2 respectively. This was sutured in place and a sterile impregnated-dressing was placed over the site. Postprocedure film is pending. MTDD
[2020-03-12 12:00] VITALS: BP 118/75
[2020-03-12 12:55] LABS: BLOOD UREA NITROGEN 12 MG/DL (7-18); CARBON DIOXIDE LEVEL 31 MEQ/L (21-32); CHLORIDE LEVEL 108 MEQ/L (98-107); GLOMERULAR FILTRATION RATE > 60.0 (>60); GLUCOSE, FASTING 77 MG/DL (70-100); LITHIUM LEVEL 0.88 MEQ/L (0.60-1.20); POTASSIUM SERUM 4.6 MEQ/L (3.5-5.1); SODIUM LEVEL 141 MEQ/L (136-145)
--- NOTE | 2020-03-12 13:47 | IPN ---
DATE: 03/12/2020 SUBJECTIVE: Robert is seen in the ICU admitted with intentional overdose of psychotropic medications including lithium, sertraline, and risperidone. The lithium level has come down without hemodialysis. He has some tremor and a bit of myoclonus, but feels well. Mental status has returned to baseline. No shortness of breath and no chest pain. OBJECTIVE: VITAL SIGNS: Blood pressure 113/73, vital signs stable. GENERAL: Alert and conversant, in no distress. Oriented x3. LUNGS: Clear. HEART: Rhythm regular. ABDOMEN: Soft. Nontender. EXTREMITIES: Slight tremor of the hands. No myoclonus noted. Normal motor strength in the arms and legs. LABORATORY DATA: Creatinine 0.8. Potassium 3.0 (oral potassium ordered). [place] level is down to 1.04. IMPRESSION: Intentional overdose of psychotropic medications. We are particularly concerned about the lithium. PLAN: [place] level is improving. Nephrology is involved. He does not require hemodialysis. Follow-up lithium levels have been ordered. Continue telemetry for another 24 hours. He will need IMA2 once medically stable. AMANDA
--- NOTE | 2020-03-12 15:31 | ECGEPIP ---
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
[2020-03-12 20:00] VITALS: BP 131/76
[2020-03-12] MEDS ORDERED: ACETAMINOPHEN TAB 650MG DOSE (2X325MG) PO PRN (23:30)
[2020-03-13 04:16] VITALS: BP 114/68
[2020-03-13 04:40] LABS: HEMATOCRIT 42.1 % (42.0-52.0); HEMOGLOBIN 14.1 g/dl (13.5-17.5); MEAN CORPUSCULAR HEMOGLOBIN 29.6 pg (27.0-33.0); MEAN CORPUSCULAR HGB CONC 33.5 g/dl (32.0-36.5); MEAN CORPUSCULAR VOLUME 88.3 fl (80.0-96.0); PLATELET COUNT, AUTOMATED 170 10^3/uL (150-450); RED BLOOD COUNT 4.77 10^6/uL (4.30-6.10); WHITE BLOOD COUNT 7.4 10^3/uL (4.0-10.0)
--- NOTE | 2020-03-13 05:08 | ECGEPIP ---
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
[2020-03-13 05:23] LABS: BLOOD UREA NITROGEN 11 MG/DL (7-18); CALCIUM LEVEL 8.5 MG/DL (8.5-10.1); CARBON DIOXIDE LEVEL 29 MEQ/L (21-32); CHLORIDE LEVEL 106 MEQ/L (98-107); CREATININE FOR GFR 0.83 MG/DL (0.70-1.30); GLOMERULAR FILTRATION RATE > 60.0 (>60); GLUCOSE, FASTING 83 MG/DL (70-100); LITHIUM LEVEL 0.46 MEQ/L (0.60-1.20); POTASSIUM SERUM 3.9 MEQ/L (3.5-5.1); SODIUM LEVEL 140 MEQ/L (136-145)
[2020-03-13 07:58] VITALS: BP 127/71
[2020-03-13 13:30] VITALS: BP 120/79
[2020-03-13 18:06] VITALS: BP 154/83
--- NOTE | 2020-03-13 20:47 | MHIPNPDOC ---
[facility] Progress Note Progress Note DATE OF SERVICE: 03/13/20 HISTORY: As per Dr. 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 Poison control was immediately. His [place] level was 1.6, 2 hour repeat was 2.6. Poison control advised total bowel irrigation, IVF 300 cc/ hour and continue lithium level and bmp every 2 hours. If levels go over 4.0 will need HD. On my interview Patient wa somnolent but easily arousable complains that he is not feeling well. Feeling nauseous, having tremors and feeling very sleepy and unable to concentrate on anything. Had 2 bowel movements with total bowel irrigation. Patient was admitted to ICU. Nephrology was consulted and repeat lithium went up to 4.4." VITAL SIGNS: See below. NEW TEST RESULTS: See below CURRENT MEDICATIONS: See below. MENTAL STATUS EXAMINATION: Patient is a 24 year old male, who is alert, cooperative, dressed in hospital clothes, sitting on hospital bed, accompanied by a sitter. Speech: Is fluid, spontaneous, normal in r/t/v. Language skills are intact. Thought processes including: linear and coherent. Thought content: anxious/depressed thoughts, negative for SI at this time, negative for Hi, negative for thought delusions . Abstract reasoning, and computation: fair. Description of associations: not loose Description of abnormal or psychotic thoughts: Denies TAV hallucinations, reports paranoid thoughts. He says he had visual hallucinations on his admission day Judgment: poor Insight: limited. Orientation: x 3. Recent and remote memory: intact. Attention span and concentration: he is able to focus. Language: adequate. Fund of knowledge: average. Mood: anxious, depressed. Affect: congruent with mood. DIAGNOSES: 1. Borderline personality disorder. 2. Major Depressive Disorder, recurrent, severe . 3. Generalized anxiety disorder ASSESSMENT: The patient is at severe risk of another suicide attempt. he has been impulsive, he feels hopeless, helpless, he has no energy, is not motivated, broussard anhedonia, has poor sleep, poor appetite, feels guilty, has difficulty paying attention and is afraid of the possibility of another suicide attempt. He needs to be transferred to [facility] but there are no beds available there at this moment, so, we would need to wait until Sunday for possible discharges so that we can transfer the patient to [facility]. Will continue to monitor him. MANAGEMENT PLAN: Recommend Zyprexa 5 mgs PO TID PRN for anxiety and agitation. patient is not taking Risperdal because he recently had a severe overdose but he would probably benefit from Zyprexa so that he will be able to calm, he is very anxious. he overdpsed on Sertraline, so, we can't start him on that medication but he could be tried on Lexapro 10 mgs PO daily. TIME SPENT: 45 minutes. Vital Signs Vital Signs Date Time Temp Pulse Resp B/P (MAP) Pulse Ox O2 Delivery O2 Flow Rate FiO2 03/13/20 18:06 97.9 69 17 154/83 (106) 97 Room Air Laboratory Data 24H Labs Laboratory Tests 2 03/13/20 04:30: Nucleated Red Blood Cells % (auto) 0.0, Anion Gap 5L, Glomerular Filtration Rate > 60.0, Calcium Level 8.5, [place] Level 0.46L CBC/BMP Laboratory Tests 03/13/20 04:30 Current Medications Current Medications Medications (Trade) Dose Ordered Sig/Kane Route PRN Reason Start Time Stop Time Status Last Admin Dose Admin Acetaminophen (Tylenol Tab) 650 mg Q4HP PRN PO PAIN OR FEVER 03/12/20 23:30 03/12/20 23:36 Heparin Sodium (Heparin) dose as per volume indica... ASDIRECTED PRN IV SEE LABEL COMMENTS 03/11/20 11:00 03/11/20 11:45 DC 03/11/20 11:44 Heparin Sodium (Heparin) dose as per volume indica... ASDIRECTED PRN IV SEE LABEL COMMENTS 03/11/20 11:00 03/11/20 11:45 DC 03/11/20 11:45 Heparin Sodium (Heparin) dose as per volume indica... ASDIRECTED PRN IV SEE LABEL COMMENTS 03/11/20 11:30 03/11/20 11:43 DC Heparin Sodium (Heparin) dose as per volume indica... ASDIRECTED PRN IV SEE LABEL COMMENTS 03/11/20 11:30 03/11/20 11:43 DC Home Med (Med Rec Complete!) ASDIRECTED XX 03/11/20 07:45 03/11/20 07:45 DC Lidocaine HCl (LIDOCAINE 1% MDV 20ml) 0.5 ml ASDIRECTED PRN SC SEE LABEL COMMENTS 03/11/20 11:00 03/12/20 10:41 DC Lidocaine HCl (LIDOCAINE 1% MDV 20ml) 0.5 ml ASDIRECTED PRN SC SEE LABEL COMMENTS 03/11/20 11:00 03/12/20 10:41 DC Lorazepam (Ativan) 2 mg Q2HP PRN IV seizure 03/11/20 11:30 03/12/20 10:41 DC Sodium Chloride 1,000 ml @ 125 mls/hr Q8H IV 03/11/20 18:15 03/12/20 07:16 DC 03/12/20 04:01 Sodium Chloride 1,000 ml @ 200 mls/hr Q5H IV 03/11/20 11:45 03/11/20 19:57 DC 03/11/20 15:07 Sodium Chloride 1,000 ml @ 250 mls/hr Q4H IV 03/11/20 04:00 03/11/20 04:50 DC 03/11/20 04:15 Sodium Chloride 1,000 ml @ 300 mls/hr Q3H20M IV 03/11/20 04:45 03/11/20 11:07 DC 03/11/20 07:10 Sodium Chloride (Nacl 0.9%) 200 ml ASDIRECTED PRN IV SEE LABEL COMMENTS 03/11/20 11:30 03/12/20 10:41 DC Allergies Coded Allergies: No Known Allergies (Unverified , 10/20/19) ESTRELLITA CASTREJON MD Mar 13, 2020 20:47
[2020-03-13 22:00] VITALS: BP 138/89
[2020-03-14 06:00] VITALS: BP 106/65
[2020-03-14 06:54] LABS: HEMATOCRIT 45.2 % (42.0-52.0); HEMOGLOBIN 15.8 g/dl (13.5-17.5); MEAN CORPUSCULAR HEMOGLOBIN 30.6 pg (27.0-33.0); MEAN CORPUSCULAR VOLUME 87.6 fl (80.0-96.0); PLATELET COUNT, AUTOMATED 201 10^3/uL (150-450); RED BLOOD COUNT 5.16 10^6/uL (4.30-6.10); WHITE BLOOD COUNT 7.1 10^3/uL (4.0-10.0)
[2020-03-14 07:25] LABS: BLOOD UREA NITROGEN 13 MG/DL (7-18); CARBON DIOXIDE LEVEL 29 MEQ/L (21-32); CHLORIDE LEVEL 105 MEQ/L (98-107); CREATININE FOR GFR 0.81 MG/DL (0.70-1.30); GLOMERULAR FILTRATION RATE > 60.0 (>60); GLUCOSE, FASTING 82 MG/DL (70-100); POTASSIUM SERUM 3.8 MEQ/L (3.5-5.1); SODIUM LEVEL 139 MEQ/L (136-145)
[2020-03-14] MEDS ORDERED: OLANZapine 5 MG TAB PO PRN (09:00)
--- NOTE | 2020-03-14 13:37 | IPN ---
DATE: 03/12/2020 SUBJECTIVE: The patient was seen and examined at the bedside today morning in the ICU. Last 24 hour events were noted. The patient got the left IJ and dialysis catheter placed. Dialysis machine was at the bedside and as soon as we were going to start dialysis, we saw the repeat lithium level had dropped from 4.4 to 2.7. A stat lithium level was repeated again and it came down to 1.6, so dialysis was not initiated. The patient was continued on IV fluid hydration. His renal function is stable. He is making a good amount of urine and repeat lithium level as of today morning is 1.04. The patient feels better. He denies any active complaints. He ate breakfast today morning. OBJECTIVE: VITAL SIGNS: Temperature is 98.1 degrees Fahrenheit, blood pressure 113/73, pulse of 72, respiratory rate of 14, saturating 96% on room air. Intake and output Urine output recorded as 2.3 liters yesterday. Stool output was 5.3 liters because he got GoLYTELY yesterday. Weight on the bed scale is 79.9 kg which is stable. PHYSICAL EXAMINATION: GENERAL APPEARANCE: The patient is awake, alert, oriented x3, laying in bed. HEAD AND NECK: Pupils are equally round and reactive to light. Mucous membranes are moist. Neck is supple. There is no jugular venous distention. CARDIOVASCULAR: S1, S2, regular rate. EXTREMITIES: No edema of the bilateral lower extremities. RESPIRATORY: Chest is clear to auscultation bilaterally. Bilaterally currently no rales or rhonchi. ABDOMEN: Soft, positive bowel sounds, nontender, no organomegaly. MUSCULOSKELETAL: No clubbing, no cyanosis. Pulses are 2+. 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 Power is 5/5 in all extremities. LINES AND ACCESSES: He has a left IJ non tunneled hemodialysis catheter. LAB REVIEW: CBC showed a WBC of 7.2, hemoglobin 17.2 and that was yesterday. BMP done today morning showed sodium 142, potassium 3, chloride 110, bicarbonate 27, BUN 10, creatinine is 0.87. Calcium 7.9, phosphorous is 3.5. Latest lithium level is 1.04. CURRENT INPATIENT MEDICATIONS: The patient's medications were all reviewed by myself. IV fluids have been stopped now. He was given a dose of potassium chloride 40 mEq p.o. times one dose today morning. ASSESSMENT AND PLAN: 1. [place] overdose - The patient got a dialysis catheter placed yesterday, however repeat lithium level started coming down. Dialysis was never done. It was treated with IV fluid hydration. [place] levels are within the acceptable range now. Left IJ catheter would be removed today. 2. Hypokalemia it is secondary to excessive IV fluid hydration. The patient was given a dose of potassium chloride 40 mEq p.o. in the morning. 3. Depression and bipolar disorder home medications including Sertraline, Zoloft are on hold. Management is as per the Medical Team. 4. Disposition the patient's renal function is stable. He has a good urine output. [place] level has improved within the normal range. Nephrology Service is going to be signing off. He can be downgraded out of ICU. Please call Nephrology Service for any help in the management of this patient during this hospitalization. AMANDA
--- NOTE | 2020-03-14 13:40 | DSES ---
DATE OF ADMISSION: 03/11/2020 DATE OF DISCHARGE: PRINCIPAL DIAGNOSIS: Intentional overdose of lithium, Risperdal, and sertraline. SECONDARY DIAGNOSES: 1. [place] toxicity. 2. Acute kidney injury. 3. Depression with suicidal ideation. CONSULTATIONS: 1. Dr. Dey of nephrology 2. Dr. Escobar of psychiatry. HISTORY OF PRESENT ILLNESS: Robert Mcgraw was admitted with intentional overdose. For details, see history and physical from admission. HOSPITAL COURSE: The patient was admitted to an ICU bed. It was felt he was going to need hemodialysis for a lithium level that was 4.48 at its highest; however, it did respond to conservative measures, and he did not require dialysis. His lithium fell on a steady basis and on the day of discharge, it is down to 0.46. He had some mild decrease in renal function. Creatinine was 1.1 at its highest and went down to its baseline at 0.8. Neurologically he remained stable. He had some tremor the first day I saw him in the hospital, but today the tremor is gone and there is no myoclonus. The rest of his lab work is unremarkable. DISCHARGE PHYSICAL EXAMINATION: On day of discharge to [facility], his vitals are stable. Blood pressure is 127/70. Lungs clear. Heart rhythm regular. Abdomen soft and nontender. Neurologic exam entirely nonfocal. No tremor. LABORATORY DATA: As summarized above. DISCHARGE DISPOSITION: I have consulted Dr. Escobar of psychiatry. The patient is stable for transfer to [facility]. [facility] [place] [facility]
[2020-03-14 14:00] VITALS: BP 109/67
--- NOTE | 2020-03-14 15:33 | IPN ---
DATE: 03/14/2020 SUBJECTIVE: Robert is stable. Vital signs have remained stable. Blood pressure is 100/65, pulse 60. Neurologic exam unchanged. Cardiopulmonary exam unremarkable. LABS: Renal function remains normal. CBC is normal. Psychiatry consult is reviewed. Appreciate Dr. Eaton input. PLAN: Plan today is to start Zyprexa 5 mg three times a day p.r.n. per psychiatry recommendation, await for a bed to open on the inpatient Mental Health Unit. AMANDA
--- NOTE | 2020-03-14 15:56 | MHIPNPDOC ---
[facility] Progress Note Progress Note DATE OF SERVICE: 03/14/20 HISTORY: As per Dr. 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 Poison control was immediately. His [place] level was 1.6, 2 hour repeat was 2.6. Poison control advised total bowel irrigation, IVF 300 cc/ hour and continue lithium level and bmp every 2 hours. If levels go over 4.0 will need HD. On my interview Patient wa somnolent but easily arousable complains that he is not feeling well. Feeling nauseous, having tremors and feeling very sleepy and unable to concentrate on anything. Had 2 bowel movements with total bowel irrigation. Patient was admitted to ICU. Nephrology was consulted and repeat lithium went up to 4.4." VITAL SIGNS: See below. NEW TEST RESULTS: See below CURRENT MEDICATIONS: See below. MENTAL STATUS EXAMINATION: Patient is a 24 year old male, who is alert, cooperative, dressed in hospital clothes, sitting on hospital bed, accompanied by a sitter. Speech: Is fluid, spontaneous, normal in r/t/v. Language skills are intact. Thought processes including: linear, obsessive Thought content: anxious/depressed thoughts, positive for thoughts of self harm and suicidal thoughts. He denies HI, reports paranoid thoughts and denies TAV hallucinations Abstract reasoning, and computation: fair. Description of associations: not loose Description of abnormal or psychotic thoughts: Denies TAV hallucinations, reports paranoid thoughts. Judgment: poor Insight: limited. Orientation: x 3. Recent and remote memory: intact. Attention span and concentration: he is able to focus. Language: adequate. Fund of knowledge: average. Mood: anxious, depressed. Affect: congruent with mood. DIAGNOSES: 1. Borderline personality disorder. 2. Major Depressive Disorder, recurrent, severe . 3. Generalized anxiety disorder ASSESSMENT: The patient says that he is struggling with suicidal thoughts and self harm thoughts like bumping his head against the wall. He thinks he wouldn't do it but he is afraid he could do it. We still don't have beds at [facility] but possibli we will have discharges tomorrow. I will start him on Zyprexa 5 mgs PO TID scheduled instead of PRN and a low dos of Lexapro, like 10 mgs PO daily to help him with anxiety. MANAGEMENT PLAN: As above. Time Spent: 15 minutes Vital Signs Vital Signs Date Time Temp Pulse Resp B/P (MAP) Pulse Ox O2 Delivery O2 Flow Rate FiO2 03/14/20 14:00 98.5 62 18 109/67 (81) 97 Room Air Laboratory Data 24H Labs Laboratory Tests 2 03/14/20 06:11: Nucleated Red Blood Cells % (auto) 0.0, Anion Gap 5L, Glomerular Filtration Rate > 60.0, Calcium Level 9.0 CBC/BMP Laboratory Tests 03/14/20 06:11 Current Medications Current Medications Medications (Trade) Dose Ordered Sig/Kane Route PRN Reason Start Time Stop Time Status Last Admin Dose Admin Acetaminophen (Tylenol Tab) 650 mg Q4HP PRN PO PAIN OR FEVER 03/12/20 23:30 03/12/20 23:36 Heparin Sodium (Heparin) dose as per volume indica... ASDIRECTED PRN IV SEE LABEL COMMENTS 03/11/20 11:00 03/11/20 11:45 DC 03/11/20 11:44 Heparin Sodium (Heparin) dose as per volume indica... ASDIRECTED PRN IV SEE LABEL COMMENTS 03/11/20 11:00 03/11/20 11:45 DC 03/11/20 11:45 Heparin Sodium (Heparin) dose as per volume indica... ASDIRECTED PRN IV SEE LABEL COMMENTS 03/11/20 11:30 03/11/20 11:43 DC Heparin Sodium (Heparin) dose as per volume indica... ASDIRECTED PRN IV SEE LABEL COMMENTS 03/11/20 11:30 03/11/20 11:43 DC Home Med (Med Rec Complete!) ASDIRECTED XX 03/11/20 07:45 03/11/20 07:45 DC Lidocaine HCl (LIDOCAINE 1% MDV 20ml) 0.5 ml ASDIRECTED PRN SC SEE LABEL COMMENTS 03/11/20 11:00 03/12/20 10:41 DC Lidocaine HCl (LIDOCAINE 1% MDV 20ml) 0.5 ml ASDIRECTED PRN SC SEE LABEL COMMENTS 03/11/20 11:00 03/12/20 10:41 DC Lorazepam (Ativan) 2 mg Q2HP PRN IV seizure 03/11/20 11:30 03/12/20 10:41 DC Olanzapine (ZyPREXA) 5 mg TIDP PRN PO ANXIETY/AGITATION 03/14/20 09:00 Sodium Chloride 1,000 ml @ 125 mls/hr Q8H IV 03/11/20 18:15 03/12/20 07:16 DC 03/12/20 04:01 Sodium Chloride 1,000 ml @ 200 mls/hr Q5H IV 03/11/20 11:45 03/11/20 19:57 DC 03/11/20 15:07 Sodium Chloride 1,000 ml @ 250 mls/hr Q4H IV 03/11/20 04:00 03/11/20 04:50 DC 03/11/20 04:15 Sodium Chloride 1,000 ml @ 300 mls/hr Q3H20M IV 03/11/20 04:45 03/11/20 11:07 DC 03/11/20 07:10 Sodium Chloride (Nacl 0.9%) 200 ml ASDIRECTED PRN IV SEE LABEL COMMENTS 03/11/20 11:30 03/12/20 10:41 DC Allergies Coded Allergies: No Known Allergies (Unverified , 10/20/19) ESTRELLITA CASTREJON MD Mar 14, 2020 15:56
[2020-03-14] MEDS: OLANZapine 5 MG TAB PO SCH ×2 (16:39→20:22)
[2020-03-14] MEDS: ESCITALOPRAM OXALATE 10 MG TAB (LEXAPRO) PO SCH (16:39)
[2020-03-14 22:00] VITALS: BP 109/67
[2020-03-15 06:00] VITALS: BP 95/66
[2020-03-15] MEDS: OLANZapine 5 MG TAB PO SCH ×2 (08:13→16:41)
[2020-03-15] MEDS: ESCITALOPRAM OXALATE 10 MG TAB (LEXAPRO) PO SCH (08:13)
[2020-03-15 14:00] VITALS: BP 119/66
== END 2020-03-15 17:10 | DRG 918 ==
LOC: M ED 03:06 → M ED INP 08:16 → ENRESERV 08:44 → M ICU 10:30 → M MSPAV 03-13 15:06
PROVIDERS: ADMIT Internal Medicine Nephrology; ATTEND Family Medicine
PROC: 02HV33Z Insertion of Infusion Device into Superior Vena Cava, Percutaneous Approach (ICD-10-PCS; principal; 2020-03-11)
DX: T43.592A Poisoning by other antipsychotics and neuroleptics, intentional self-harm, initial encounter (principal); N17.9 Acute kidney failure, unspecified; F33.2 Major depressive disorder, recurrent severe without psychotic features; T43.222A Poisoning by selective serotonin reuptake inhibitors, intentional self-harm, initial encounter; E87.6 Hypokalemia; F60.3 Borderline personality disorder; F41.1 Generalized anxiety disorder; Z20.828 Contact with and (suspected) exposure to other viral communicable diseases

== ENCOUNTER 2020-03-15 14:49 | Inpatient (IN) | payer OTHER ==
[~2020-03-15] VITALS: Ht 170.2 cm; Wt 77.1 kg
[~2020-03-15 14:49] MED LIST changes: +RISP0.5T3 PO; +RISP2TAB3 PO
[2020-03-15] MEDS ORDERED: ACETAMINOPHEN TAB 650MG DOSE (2X325MG) PO PRN (15:45)
[2020-03-15] MEDS ORDERED: MAALOX 30 ML SUSP *UDC PO PRN (15:45)
[2020-03-15] MEDS ORDERED: MOM 30ML SUSPENSION UDC PO PRN (15:45)
[2020-03-15] MEDS ORDERED: OLANZapine ORAL DISINTEGRATING TAB 5MG PO PRN (15:45)
[2020-03-15 17:30] VITALS: BP 120/70
[2020-03-16 06:52] VITALS: BP 134/80
[2020-03-16] MEDS: ESCITALOPRAM OXALATE 10 MG TAB (LEXAPRO) PO SCH (09:28)
--- NOTE | 2020-03-16 16:07 | HPEPDOC ---
General Date of Admission Mar 15, 2020 at 17:05 Date of Service: Mar 16, 2020 Chief Complaint The patient is a 24-year-old male admitted with a reason for visit of Unspecified Depressive Disorder. Source: Patient History of Present Illness 24 year old male was admitted to ICU on 03/11/20 for an intensional overdose with lithium and zoloft. His lithium levels were high so it was thought he would need HD so a [place] was placed. However ultimately with total bowel irrigation, IVF his lithium levels came down and he ultimately did not need HD. He was ultimately discharged to [facility] after bed became available on 03/15/20. Today i am seeing the patient for medical history and physical. Complains of some epigastric discomfort, no nausea or vomiting, no diarrhea. Home Medications No Active Prescriptions or Reported Meds Allergies Coded Allergies: No Known Allergies (Unverified , 10/20/19) Past Medical History Medical History Major Depression with suicidal attempt by OD on [place] and zoloft Borderline personality disorder. Generalized anxiety disorder Surgical History wisdom tooth removal Family History Significant Family History: Hypertension (mother) Social History * Smoker: Denies Alcohol: occationally Drugs: denies A-FIB/CHADSVASC A-FIB History Current/History of A-Fib/PAF?: No Review of Systems Constitutional: Denies: Chills, Fever, Night Sweats Eyes: Denies: Pain, Vision change ENT: Denies: Head Aches, Ear Pain, Dysphagia Pulmonary: Denies: Dyspnea, Cough Cardiovascular: Denies: Chest Pain, Palpitations, Orthopnea, Paroxysmal Noc. Dyspnea, Lt Headedness Gastrointestinal: Denies: Nausea, Vomiting, Abdominal Pain, Diarrhea Genitourinary: Denies: Dysuria, Frequency, Incontinence, Retention Hematologic: Denies: Bruising, Bleeding Excessively Musculoskeletal: Denies: Neck Pain, Back Pain, Joint Pain, Muscle Pain, Spasms Physical Examination General Exam: Positive: Alert, No Acute Distress Eye Exam: Positive: PERRLA, Conjunctiva & lids normal, EOMI; Negative: Sclera icteric ENT Exam: Positive: Atraumatic, Mucous membr. moist/pink, Pharynx Normal Neck Exam: Positive: Supple; Negative: JVD, thyromegaly Chest Exam: Positive: Clear to auscultation, Normal air movement Heart Exam: Positive: Rate Normal, Regular Rhythm, Normal S1, Normal S2; Negative: Murmurs, Rubs Abdomen Exam: Positive: Normal bowel sounds, Soft; Negative: Tenderness, Hepatospenomegaly Extremity Exam: Positive: Normal pulses; Negative: Clubbing, Cyanosis, Edema Skin Exam: Positive: Nl turgor and temperature; Negative: Breakdown, Lesion Vital Signs Vital Signs Date Time Temp Pulse Resp B/P (MAP) Pulse Ox O2 Delivery O2 Flow Rate FiO2 03/16/20 06:52 97.2 58 14 134/80 (98) 03/15/20 17:30 97 Room Air Assessment/Plan 24 year old male was admitted to ICU on 03/11/20 for an intensional overdose with lithium and Zoloft. HE was admitted to [facility] for major depression with suicidal attempt. I am seeing the pateitn for medical History and physical. Epigastric discomfort probably Pill gastritis continue mylanta prn. Depression as per Psychiatry. Plan / VTE VTE Prophylaxis Ordered?: No (freely ambulatroy) MARVIN DEAL MD Mar 16, 2020 16:07
--- NOTE | 2020-03-16 16:21 | MHHPEPDOC ---
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 Patient recently had an admission to this facility from 01/28/20-02/04/20 and was discharged back to [facility]. He states that he has intrusive thoughts that are "really bad" reports he has trouble thinking clearly and doesn't trust his own thoughts. States that he often catastrophizes everything, ruminates and overthinks. He attempts to use thought stopping techniques but says there is not difference and "I can't remember before anything that happened before I started medications" Psychiatric Review of Systems Depression (2 or more weeks): depressed mood, anhedonia, insomnia/hypersomnia, feelings of excess/guilt, feelings of worthlesness, decreased energy, difficulty concentrating, psychomotor changes, suicidal thoughts Dianna (4 or more days of): irritable/elevated mood, expansive mood, decreased need for sleep, distractibility, engages in risky behavior, other (Patient reports these symptoms on a mood disorder questionnaire) Psychosis: denies Past Psychiatric History Previous Psychiatric Diagnosis: Depression, Anxiety, Borderline Personality, Bipolar Previous Psychiatric Admissions: 01/28/20-02/04/20 Suicide Attempts: History of Oxycodone OD Psychiatric Follow-up: [facility] Psychiatric medications: Zoloft Past Medical History Head Injury: No Hospitalizations: Yes Surgeries: Yes (wisdom teeth) Family Medical/Psychiatric HX Psychiatric Disorders: No Addiction: No Suicide Attemps/Completions: No Addiction History alcohol (occasional) Social History Childhood: Grew upo in [place], both parents are alive and doing well, has an older brother, and a twin brother Abuse/Trauma: denies Current Living Situation: [employer], [employer] Education: High School 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 Mental Status Examination General Appearance: disheveled, appears stated age, hospital scubs/clothing Build: average Demeanor: withdrawn, guarded Eye Contact: poor Activity: anxious Behavior: cooperative, withdrawn Speech: clear Mood: anxious Affect: constricted, anxious Thought Process: logical/linear Thought Content (Delusions): none reported Thought Content (Other): none reported Thought Content (Aggressive): none reported Perception (Hallucinations): none reported Perception (Other): none reported Cognition (Impairment of): none reported Cognition(Intelligence Est.): average Oriented: Awake, Alert, Oriented times three Insight: fair Judgment: Fair Psychosis: Denies Diagnoses Unspecified Bipolar Disorder r/o Bipolar II Disorder Borderline Personality Disorder per pt's report Generalized Anxiety Disorder A-FIB/CHADSVASC A-FIB History Current/History of A-Fib/PAF?: No Assessment Patient is at high risk for suicide attempt. Reports being very disorganized and being a poor historian. States that he cannot remember things from this summer and has poor concentration. poor sleep. will start patient on Lexapro and Latuda 20 mg Initial Treatment Plan 1. Patient was admitted on a [9.39] status. 2. Complete history was obtained. 3. With patients permission, family will be contacted and database will be expanded. 4. Patients medication regimen will be reviewed and changed accordingly. 5. Patient will be provided with protected environment. 6. Patient will be treated with individual, group, and milieu therapies. 7. Patient will receive supportive psych-education. 8. Discharge planning will commence immediately. 9. Outpatient follow-up treatment will be strongly recommended. 10. The initial treatment plan will focus initially on: * Depression. * Risk for suicide. ESTIMATED LENGTH OF STAY: 7-10 DAYS. TIME SPENT COUNSELING AND COORDINATING INITIAL CARE: 50 minutes. Vital Signs Vital Signs Date Time Temp Pulse Resp B/P (MAP) Pulse Ox O2 Delivery O2 Flow Rate FiO2 03/16/20 06:52 97.2 58 14 134/80 (98) 03/15/20 17:30 97 Room Air Medications No Active Prescriptions or Reported Meds Allergies Coded Allergies: No Known Allergies (Unverified , 10/20/19) NADER MENEZES NP Mar 16, 2020 13:49
[2020-03-16] MEDS: traZODone 50 MG TAB PO PRN (21:43)
[2020-03-17 06:39] VITALS: BP 125/74
[2020-03-17] MEDS: ESCITALOPRAM OXALATE 10 MG TAB (LEXAPRO) PO SCH (09:39)
[2020-03-17] MEDS: LURASIDONE 20 MG TAB (LATUDA) PO SCH (09:40)
--- NOTE | 2020-03-17 13:38 | MHIPNPDOC ---
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 Patient recently had an admission to this facility from 01/28/20-02/04/20 and was discharged back to [facility]. He states that he has intrusive thoughts that are "really bad" reports he has trouble thinking clearly and doesn't trust his own thoughts. States that he often catastrophizes everything, ruminates and over thinks. He attempts to use thought stopping techniques but says there is not difference and "I can't remember before anything that happened before I started medications" VITAL SIGNS: See below. NEW TEST RESULTS: CURRENT MEDICATIONS: See below. 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 He is observed smiling on approach, he appears his stated age. His appearance is well-kempt, hygiene and grooming is good. His eye contact is very good and he is not observed with psychomotor agitation or retardation Speech: Is fluid, conversant, normal rate, tone and volume Language skills are intact Thought processes including: linear and goal oriented Thought content: reports depression and anxiety. Abstract reasoning, and computation: fair Description of associations: denies, none observed Description of abnormal or psychotic thoughts: denies, none observed. Judgment: fair Insight: fair Orientation: alert and oriented to person, place, time and situation Recent and remote memory: intact Attention span and concentration: good Language: expansive Fund of knowledge: average Mood: "anxious. optimistic and hopeful" Affect: reactive DIAGNOSES: Unspecified Bipolar Disorder r/o Bipolar II Disorder Borderline Personality Disorder per pt's report Generalized Anxiety Disorder ASSESSMENT: Patient states that he is "anxious. optimistic and hopeful" and ready get help. Patient smiles on approach. Patient reports that he does not know if his meds were clouding his thinking or judgment but he reported that daily his girlfriend would report that he was changed or allowing the medications to cloud his thinking. He states that his girlfriend has a history of manipulating him and that she was always arguing with him. Due to her constant reporting that his medications were changing he states "I didn't even think that my own thoughts were even my own." He reports that after a terrible argument with her, he drove around from 5 PM to 3 AM driving from [place] [facility] [place] [facility] [place]. He had thoughts of driving his car into a telephone pole and that is when he sw the bottles of medications, and he took an overdose. In today's interview, patient reports that he is feeling mildly better, reporting decreased depression and that he feels safer, does not have suicidal ideation today. He is agreeable to intensive inpatient and wants to do this as soon as possible. I believe that discharging patient before the weekend may be dangerous, given patient's history of suicide attempts. MANAGEMENT PLAN: Continue medications as ordered, we will discharge when patient is stable. Will consider discharging patient on Sunday. TIME SPENT: 25 minutes. Vital Signs Vital Signs Date Time Temp Pulse Resp B/P (MAP) Pulse Ox O2 Delivery O2 Flow Rate FiO2 03/17/20 06:39 97.7 67 14 125/74 (91) 95 Room Air Current Medications Current Medications Medications (Trade) Dose Ordered Sig/Kane Route PRN Reason Start Time Stop Time Status Last Admin Dose Admin Acetaminophen (Tylenol Tab) 650 mg Q6HP PRN PO HEADACHE or DISCOMFORT 03/15/20 15:45 Al Hydrox/Mg Hydrox/Simethicone (Mylanta) 30 ml Q4HP PRN PO HEARTBURN/INDIGESTION 03/15/20 15:45 Escitalopram Oxalate (Lexapro) 10 mg DAILY PO 03/16/20 09:00 03/17/20 09:39 Lurasidone HCl (Latuda) 20 mg DAILY@08 PO 03/17/20 08:00 03/17/20 09:40 Magnesium Hydroxide (Milk Of Magnesia) 30 ml DAILYPRN PRN PO CONSTIPATION 03/15/20 15:45 Olanzapine (ZyPREXA ZYDIS) 5 mg TID PRN PO AGITATION 03/15/20 15:45 Trazodone HCl (Desyrel) 50 mg QHSP PRN PO INSOMNIA 03/15/20 15:45 03/16/20 21:43 Allergies Coded Allergies: No Known Allergies (Unverified , 10/20/19) NADER MENEZES GENERAL ASSIGNMENT REPORTER Mar 17, 2020 13:06
[2020-03-17 18:00] VITALS: BP 114/72
[2020-03-17] MEDS: traZODone 50 MG TAB PO PRN (20:50)
[2020-03-18 06:30] VITALS: BP 138/75
[2020-03-18] MEDS: ESCITALOPRAM OXALATE 10 MG TAB (LEXAPRO) PO SCH (11:37)
[2020-03-18] MEDS: LURASIDONE 20 MG TAB (LATUDA) PO SCH (11:37)
--- NOTE | 2020-03-18 12:50 | MHIPNPDOC ---
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 Patient recently had an admission to this facility from 01/28/20-02/04/20 and was discharged back to [facility]. He states that he has intrusive thoughts that are "really bad" reports he has trouble thinking clearly and doesn't trust his own thoughts. States that he often catastrophizes everything, ruminates and over thinks. He attempts to use thought stopping techniques but says there is not a difference and "I can't remember before anything that happened before I started medications" VITAL SIGNS: See below. NEW TEST RESULTS: CURRENT MEDICATIONS: See below. 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 He is observed smiling on approach, he appears his stated age. His appearance is well-kempt, hygiene and grooming is good. His eye contact is very good and he has a very bright smile, he is not observed with psychomotor agitation or retardation Speech: Is fluid, conversant, normal rate, tone and volume Language skills are intact Thought processes including: linear and goal oriented Thought content: reports depression and anxiety. Abstract reasoning, and computation: fair Description of associations: denies, none observed Description of abnormal or psychotic thoughts: denies, none observed. Judgment: fair Insight: fair Orientation: alert and oriented to person, place, time and situation Recent and remote memory: intact Attention span and concentration: good Language: expansive Fund of knowledge: average Mood: bright mood Affect: reactive/bright DIAGNOSES: Unspecified Bipolar Disorder, recurrent, depressed Borderline Personality Disorder per pt's report Generalized Anxiety Disorder ASSESSMENT: This is Day 4 of patient's admission. To review, patient report took an overdose on [place] and Zoloft as a suicide attempt. In today's interview, patient is reporting an improvement in mood and thus it shows in his affect. He reports bright mood and states that he has been better each day. States that today is the best that he has felt in a long time. 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 He further feels that him being able to separate from his girlfriend who was repeating to him that he makes poor choices while he was on medications, is the best thing for him at this time. He reported that she was very controlling and domineering. States that his personality is that he would do whatever she wanted or said, including not seeing his family for long periods of time. At this time, patient is stable to be transferred to [facility] in [place], he is very agreeable and is hopeful. MANAGEMENT PLAN: Continue medications as ordered, we will discharge when patient is stable. Will consider discharging patient possibly over the weekend to transfer to [facility] . TIME SPENT: 25 minutes. Vital Signs Vital Signs Date Time Temp Pulse Resp B/P (MAP) Pulse Ox O2 Delivery O2 Flow Rate FiO2 03/18/20 06:30 97.9 68 16 138/75 (96) Room Air 03/17/20 06:39 95 Current Medications Current Medications Medications (Trade) Dose Ordered Sig/Kane Route PRN Reason Start Time Stop Time Status Last Admin Dose Admin Acetaminophen (Tylenol Tab) 650 mg Q6HP PRN PO HEADACHE or DISCOMFORT 03/15/20 15:45 Al Hydrox/Mg Hydrox/Simethicone (Mylanta) 30 ml Q4HP PRN PO HEARTBURN/INDIGESTION 03/15/20 15:45 Escitalopram Oxalate (Lexapro) 10 mg DAILY PO 03/16/20 09:00 03/18/20 11:37 Lurasidone HCl (Latuda) 20 mg DAILY@08 PO 03/17/20 08:00 03/18/20 11:37 Magnesium Hydroxide (Milk Of Magnesia) 30 ml DAILYPRN PRN PO CONSTIPATION 03/15/20 15:45 Olanzapine (ZyPREXA ZYDIS) 5 mg TID PRN PO AGITATION 03/15/20 15:45 Trazodone HCl (Desyrel) 50 mg QHSP PRN PO INSOMNIA 03/15/20 15:45 03/17/20 20:50 Allergies Coded Allergies: No Known Allergies (Unverified , 10/20/19) NADER MENEZES METAL WELDER Mar 18, 2020 12:50
[2020-03-18 16:28] VITALS: BP 132/80
[2020-03-19 06:32] VITALS: BP 131/88
[2020-03-19 06:35] LABS: HEMATOCRIT 47.5 % (42.0-52.0); HEMOGLOBIN 16.1 g/dl (13.5-17.5); MEAN CORPUSCULAR HEMOGLOBIN 29.5 pg (27.0-33.0); MEAN CORPUSCULAR HGB CONC 33.9 g/dl (32.0-36.5); PLATELET COUNT, AUTOMATED 195 10^3/uL (150-450); RED BLOOD COUNT 5.46 10^6/uL (4.30-6.10); WHITE BLOOD COUNT 5.2 10^3/uL (4.0-10.0)
[2020-03-19 07:07] LABS: ALBUMIN 4.1 GM/DL (3.2-5.2); ALT/SGPT 22 U/L (12-78); BILIRUBIN,DIRECT 0.2 MG/DL (0.0-0.2); BILIRUBIN,TOTAL 0.7 MG/DL (0.2-1.0); BLOOD UREA NITROGEN 14 MG/DL (7-18); CALCIUM LEVEL 9.2 MG/DL (8.5-10.1); CARBON DIOXIDE LEVEL 29 MEQ/L (21-32); CHLORIDE LEVEL 104 MEQ/L (98-107); CREATININE FOR GFR 0.82 MG/DL (0.70-1.30); GLOMERULAR FILTRATION RATE > 60.0 (>60); GLUCOSE, FASTING 77 MG/DL (70-100); POTASSIUM SERUM 4.1 MEQ/L (3.5-5.1); SODIUM LEVEL 139 MEQ/L (136-145); TOTAL PROTEIN 7.2 GM/DL (6.4-8.2)
[2020-03-19] MEDS: ESCITALOPRAM OXALATE 10 MG TAB (LEXAPRO) PO SCH (08:11)
[2020-03-19] MEDS: LURASIDONE 20 MG TAB (LATUDA) PO SCH (08:11)
--- NOTE | 2020-03-19 11:18 | MHIPNPDOC ---
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 Patient recently had an admission to this facility from 01/28/20-02/04/20 and was discharged back to [facility]. He states that he has intrusive thoughts that are "really bad" reports he has trouble thinking clearly and doesn't trust his own thoughts. States that he often catastrophizes everything, ruminates and over thinks. He attempts to use thought stopping techniques but says there is not a difference and "I can't remember before anything that happened before I started medications" VITAL SIGNS: See below. NEW TEST RESULTS: CURRENT MEDICATIONS: See below. 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 He is observed smiling on approach, he appears his stated age. His appearance is well-kempt, hygiene and grooming is good. His eye contact is very good and he has a very bright smile, he is not observed with psychomotor agitation or retardation Speech: Is fluid, conversant, normal rate, tone and volume Language skills are intact Thought processes including: linear and goal oriented Thought content: reports no depression and mild anxiety. Abstract reasoning, and computation: fair Description of associations: denies, none observed Description of abnormal or psychotic thoughts: denies, none observed. Judgment: fair Insight: fair Orientation: alert and oriented to person, place, time and situation Recent and remote memory: intact Attention span and concentration: good Language: expansive Fund of knowledge: average Mood: bright mood Affect: reactive/bright DIAGNOSES: Unspecified Bipolar Disorder, recurrent, depressed Borderline Personality Disorder per pt's report Generalized Anxiety Disorder ASSESSMENT: This is Day 5 of patient's admission. To review, patient report took an overdose on [place] and Zoloft as a suicide attempt. In today's interview, patient is getting ready to go on a 4-hour pass for his belongings. Patient denies depression, reporting mild anxiety but states that he is very optimistic. Using his journal to outline his short term and long winder tender goals. States that he has been using journal to get himself back on track. He is observed to be with a bright mood and affect, attending groups, visible on the unit and social with his peers. Patient is stable for his transfer to long winder tender care. MANAGEMENT PLAN: Continue medications as ordered, we will discharge when patient is stable. Will be discharging patient possibly over the weekend to transfer to [facility] . TIME SPENT: 10 minutes. Vital Signs Vital Signs Date Time Temp Pulse Resp B/P (MAP) Pulse Ox O2 Delivery O2 Flow Rate FiO2 03/19/20 06:32 96.3 66 16 131/88 (102) Room Air 03/17/20 06:39 95 Laboratory Data 24H Labs Laboratory Tests 2 03/19/20 06:18: Nucleated Red Blood Cells % (auto) 0.0, Anion Gap 6L, Glomerular Filtration Rate > 60.0, Calcium Level 9.2, Total Bilirubin 0.7, Direct Bilirubin 0.2, Aspartate Amino Transf (AST/SGOT) 17, Alanine Aminotransferase (ALT/SGPT) 22, Alkaline Phosphatase 60, Total Protein 7.2, Albumin 4.1, Albumin/Globulin Ratio 1.3 CBC/BMP Laboratory Tests 03/19/20 06:18 Current Medications Current Medications Medications (Trade) Dose Ordered Sig/Kane Route PRN Reason Start Time Stop Time Status Last Admin Dose Admin Acetaminophen (Tylenol Tab) 650 mg Q6HP PRN PO HEADACHE or DISCOMFORT 03/15/20 15:45 03/18/20 20:46 Al Hydrox/Mg Hydrox/Simethicone (Mylanta) 30 ml Q4HP PRN PO HEARTBURN/INDIGESTION 03/15/20 15:45 Escitalopram Oxalate (Lexapro) 10 mg DAILY PO 03/16/20 09:00 03/19/20 08:11 Lurasidone HCl (Latuda) 20 mg DAILY@08 PO 03/17/20 08:00 03/19/20 08:11 Magnesium Hydroxide (Milk Of Magnesia) 30 ml DAILYPRN PRN PO CONSTIPATION 03/15/20 15:45 Olanzapine (ZyPREXA ZYDIS) 5 mg TID PRN PO AGITATION 03/15/20 15:45 Trazodone HCl (Desyrel) 50 mg QHSP PRN PO INSOMNIA 03/15/20 15:45 03/17/20 20:50 Allergies Coded Allergies: No Known Allergies (Unverified , 10/20/19) NADER MENEZES NP Mar 19, 2020 11:18
[2020-03-20 06:29] VITALS: BP 132/76
[2020-03-20] MEDS: LURASIDONE 20 MG TAB (LATUDA) PO SCH (08:59)
[2020-03-20] MEDS: ESCITALOPRAM OXALATE 10 MG TAB (LEXAPRO) PO SCH (08:59)
[2020-03-20 16:00] VITALS: BP 142/63
[2020-03-20] MEDS: traZODone 50 MG TAB PO PRN (21:30)
[2020-03-21 06:48] VITALS: BP 144/79
[2020-03-21] MEDS: LURASIDONE 20 MG TAB (LATUDA) PO SCH (08:53)
[2020-03-21] MEDS: ESCITALOPRAM OXALATE 10 MG TAB (LEXAPRO) PO SCH (09:20)
[2020-03-21 18:52] VITALS: BP 112/82
[2020-03-22 06:15] VITALS: BP 147/75
[2020-03-22] MEDS: LURASIDONE 20 MG TAB (LATUDA) PO SCH (09:41)
[2020-03-22] MEDS: ESCITALOPRAM OXALATE 10 MG TAB (LEXAPRO) PO SCH (09:42)
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
[2020-03-22] MEDS ORDERED: ESCI10TA2 PO (16:47)
[2020-03-22] MEDS ORDERED: RISP2TAB32 PO (16:47)
[2020-03-22] MEDS ORDERED: LATU20TA PO (16:47)
[2020-03-22 16:48] VITALS: BP 120/67
[2020-03-22] MEDS ORDERED: risperiDONE 2 MG TAB PO SCH (21:00)
[2020-03-23 06:05] VITALS: BP 117/58
[2020-03-23] MEDS: ESCITALOPRAM OXALATE 10 MG TAB (LEXAPRO) PO SCH (07:45)
[2020-03-23] MEDS: LURASIDONE 20 MG TAB (LATUDA) PO SCH (07:45)
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
== END 2020-03-23 08:30 | disposition short-term general hospital (02) | DRG 885 ==
LOC: M PSY 17:05
PROVIDERS: ADMIT Psychiatry & Neurology Psychiatry; ATTEND Psychiatry & Neurology Psychiatry
DX: F31.9 Bipolar disorder, unspecified (principal); F60.3 Borderline personality disorder; F41.1 Generalized anxiety disorder; Z91.5 Personal history of self-harm; K29.60 Other gastritis without bleeding